=== PATIENT | male | born 1955 | race Caucasian/White ===

== ENCOUNTER 2017-10-05 11:06 | Observation (INO) ==
--- NOTE | 2017-10-05 11:20 | Emergency Department Note ---
Disposition Clinical Impression: Syncope and collapse Disposition: Admitted As Inpatient Condition: Good Time of Disposition: 13:44 General Adult HPI - General Chief complaint: ED Syncope Stated complaint: syncope Time Seen by Provider: 10/05/17 11:12 Source: patient Mode of arrival: ambulatory Limitations: no limitations Nursing Notes Reviewed: Yes Vital Signs Reviewed: Yes - History of Present Illness HPI Narrative: 61-year-old male history of CABG and recent cardiac stent placement 8 weeks ago presents to the emergency department for syncopal episode. States over the past several days he has been feeling lightheaded and dizzy. He believes it could be due to the new medication he has been placed on for his restless leg syndrome. Patient states yesterday around 1530 he had a syncopal episode where he was laying in the recliner got up to go to the bathroom and passed out found on the floor by brother. He has some bruising to his right upper extremity and some soreness to the left hip. He takes aspirin and Plavix due to his stents. He denies any head injury or neck pain. He denies any prodromal symptoms such as lightheadedness, chest pain, shortness of breath or headache. Patient recently evaluated and treated for chest pain with stent placed by [place] client resource specialist. He denies any other complaints at this time. Denies any recent illness or fever. Pain Scale: 6 - Related Data Home Medications Medication Instructions Recorded Confirmed Celecoxib [Celebrex] 200 mg PO DAILY 05/13/15 10/05/17 Cyanocobalamin (B-12) [Vitamin B12] 1,000 mcg SQ Q3M 05/13/15 10/05/17 Fluticasone/Salmeterol [Advair 1 puff IH BID 05/13/15 10/05/17 100-50 Diskus] HydrOXYzine 25 mg PO BID 05/13/15 10/05/17 Isosorbide MONOnitrate (24 HR) 30 mg PO DAILY 05/13/15 10/05/17 [Imdur] Lisinopril [Zestril] 2.5 mg PO DAILY 05/13/15 10/05/17 Metoprolol [Lopressor] 25 mg PO BID 05/13/15 10/05/17 Mirtazapine [Remeron] 30 mg PO HS 05/13/15 10/05/17 Multivitamin [Flintstones] 1 tab PO DAILY 05/13/15 10/05/17 OxyCODONE/APAP 7.5/325 [Percocet 1 tab PO Q6H PRN 05/13/15 10/05/17 7.5/325] Simvastatin [Zocor] 40 mg PO DAILY 05/13/15 10/05/17 Tiotropium [Spiriva] 1 puff IH DAILY 05/13/15 10/05/17 FluocinoNIDE 0.05% CRM [Lidex] 1 appl TP BID 07/25/17 10/05/17 Montelukast [Singulair] 10 mg PO DAILY 07/25/17 10/05/17 Nystatin Cream [Mycostatin Cream] 1 appl TP TID 07/25/17 10/05/17 Prochlorperazine Maleate 5 mg PO Q8H 07/25/17 10/05/17 [Compazine] Ranitidine HCl [Zantac] 150 mg PO BID 07/25/17 10/05/17 Triamcinolone Acet 0.1% CRM 1 appl TP DAILY 07/25/17 10/05/17 [Kenalog] Ferrous Sulfate 325 mg PO DAILY 10/05/17 10/05/17 Previous Rx's Medication Instructions Recorded Aspirin Enteric Coated [Aspirin EC] 81 mg PO DAILY #30 tablet. 07/26/17 Atorvastatin [Lipitor] 80 mg PO QAM #30 tablet 07/26/17 Clopidogrel Bisulfate [Plavix] 75 mg PO DAILY #30 tablet 07/26/17 Lansoprazole [Prevacid] 30 mg PO QAM #30 capsule. 07/26/17 Allergies Allergy/AdvReac Type Severity Reaction Status Date / Time No Known Allergies Allergy Unverified 04/29/15 08:03 All systems ED: reviewed and negative except as stated. Review of Systems: As Per HPI Constitutional: Denies: fever, chills, weakness ENT ED: Denies: congestion Cardiovascular: Reports: syncope. Denies: chest pain, palpitations, dyspnea on exertion Respiratory: Denies: cough, dyspnea Gastrointestinal: Denies: abdominal pain Musculoskeletal: Denies: back pain, neck pain Integumentary: Denies: rash, abrasion Neurological: Denies: headache Past Medical History - Past Medical History Attestation: Yes The following information was validated with the patient. Source: patient Medical history: Reports: arthritis, COPD, coronary artery disease, GERD, hyperlipidemia, hypertension, myocardial infarction Surgical history: Reports: angioplasty/stent, bariatric surgery, cholecystectomy , coronary bypass (CABG) Psychiatric history: Reports: no psych history - Social History Smoking Status: Current every day smoker Smokeless Tobacco Status: No Alcohol use: Reports: none Drug use: Reports: none Physical Exam - General Limitations: no limitations General appearance: alert, in no apparent distress - Head Head exam: atraumatic, normocephalic, normal inspection - Eye Eye exam: Present: normal appearance, PERRL, EOMI. Absent: nystagmus - ENT ENT exam: normal exam, normal oropharynx, mucous membranes moist - Neck Neck exam: Present: normal inspection, full ROM, trachea midline - Chest Chest inspection: Present: normal inspection, symmetric chest wall rise, other ( midsternal scar, CABG) - Respiratory Respiratory exam: Present: normal lung sounds bilaterally. Absent: respiratory distress, wheezes - Cardiovascular Cardiovascular exam: Present: regular rate, normal rhythm, normal heart sounds, other (no murmur with valsalva). Absent: systolic murmur, diastolic murmur - Abdominal Exam Abdominal exam: Present: soft, Non-Tender. Absent: tenderness, distention, guarding, rebound, rigidity - Extremities Exam Extremities exam: Present: normal inspection, full ROM, normal capillary refill. Absent: tenderness, pedal edema - Back Exam Back exam: Present: normal inspection, full ROM. Absent: tenderness - Neurological Exam Neurological exam: Present: alert, oriented X3, CN II-XII intact - Expanded Neurological Exam Patient oriented to: Present: person, place, time Speech: Present: fluid speech Cranial nerves: EOM function (II, III, IV, ): Normal, facial sensation (V): Normal, facial palsy (VII): Normal, gag reflex (IX): Normal, spinal accessory function (XI): Normal, tongue deviation (XII): Normal Motor strength - LUE: 5/5 Motor strength - RUE: 5/5 Motor strength - LLE: 5/5 Motor strength - RLE: 5/5 Upper motor neuron exam: oumar neglect: Absent bilaterally, pronator drift: Absent bilaterally Sensory exam upper extremity: light touch: Normal Sensory exam lower extremity: light touch: Normal - Psychiatric Psychiatric exam: Present: normal affect, normal mood. Absent: agitated - Skin Skin exam: Present: warm, dry, intact, normal color. Absent: rash, cyanosis, diaphoresis Course Course Narrative: Patient presents with syncopal episode without any prodromal symptoms. He does report some increase lightheadedness and dizziness since starting his restless leg medication. Neurologic exam is normal without any focal neural deficits. CT of the head unremarkable for intracranial abnormality. He has extensive cardiac history. History of congestive heart failure. His initial systolic blood pressure 110. He denies any blood in the stool black tarry stool hemoptysis or hematemesis. EKG normal sinus without acute ischemic findings. No Brugada pattern, delta waves, LVH. His heart's regular rate and rhythm. No murmurs are auscultation. He has been noncardiac monitor without any evidence of arrhythmia. Review of his labs shows baseline anemia that is stable. Per ACEP syncope guidelines he warrants admission and further evaluation for syncope. Impression is syncope with collapse and history of CAD. - Consultations Consultation #1: Spoke with on-call hospitalist warren Tian to admit for syncope and collapse. No further orders at this time Vital Signs Temperature 98.3 F 10/05/17 11:08 Pulse Rate 81 10/05/17 11:08 Respiratory Rate 18 10/05/17 11:08 Blood Pressure 119/75 10/05/17 11:08 O2 Sat by Pulse Oximetry 98 10/05/17 11:08 Temperature 98.1 F 10/05/17 18:31 Pulse Rate 60 10/05/17 18:31 Respiratory Rate 16 10/05/17 21:00 Blood Pressure 133/77 10/05/17 18:31 O2 Sat by Pulse Oximetry 95 10/05/17 21:00 Oxygen Delivery Oxygen Delivery Room Air Medical Decision Making - MDM Narrative Medical decision making narrative: Patient was discussed with my attending physician who agrees with ED management and final disposition. They independently evaluated the patient. Please refer to their attestation to this encounter for additional information. This note was generated by [email or web address] voice recognition software and as a result grammatical or spelling errors may occur using this program. - Medical Records Medical records reviewed: Yes I reviewed the patient's medical records. - Lab Data Lab results reviewed: Yes I reviewed the patient's lab results. Result diagrams: 10/05/17 11:45 10/05/17 11:45 Lab Results 10/05/17 10/05/17 10/05/17 Range/Units 11:45 11:45 13:46 WBC 7.6 (4.3-11.1) K/mcL RBC 4.11 L (4.19-5.50) M/mcL Hgb 12.2 L (12.9-16.9) g/dL Hct 35.1 L (37.5-50.1) % MCV 85.4 (83.0-100.0) fL MCH 29.7 (28.0-33.3) pg MCHC 34.8 (31.6-35.5) g/dL RDW 14.9 H (11.5-14.5) % Plt Count 215 (140-400) K/mcL MPV 8.2 L (9.4-12.4) fL Immature Gran % 0.4 (0-4) % Seg Neutrophils % 56.4 % Lymphocytes % 31.6 % Monocytes % 6.3 % Eosinophils % 4.5 % Basophils % 0.8 % Neutrophils # 4.3 (1.6-8.9) K/mcL Lymphocytes # 2.4 (0.6-4.6) K/mcL Monocytes # 0.5 (0.0-1.3) K/mcL Eosinophils # 0.3 (0.0-0.6) K/mcL Basophils # 0.1 (0.0-0.2) K/mcL Sodium 128 L (136-145) mEq/L Potassium 3.8 (3.5-5.1) mEq/L Chloride 98 (98-107) mEq/L Carbon Dioxide 23 (23-29) mEq/L BUN 6 L (8-23) mg/dL Creatinine 0.58 L (0.70-1.30) mg/dL Est GFR ( Amer) > 60 (> 60) Est GFR (Non-Af Amer) > 60 (> 60) BUN/Creatinine Ratio 10 (6-26) Glucose 97 (70-105) mg/dL Calculated Osmolality 264 L (280-300) Calcium 8.7 (8.6-10.3) mg/dL Troponin I < 0.03 < 0.03 (< 0.04) ng/mL - Radiology Data Radiology results reviewed: Yes I reviewed the patient's radiology results. Chest X-Ray 10/05/17 11:36 IMPRESSION: No acute cardiopulmonary process. D/ / Miki Zayas MD / Miki Zayas MD Interpreting Provider: Miki Zayas MD Head CT 10/05/17 11:36 IMPRESSION: No acute intracranial abnormality. D/ / Mauri Wall MD / Mauri Wall MD Interpreting Provider: Mauri Wall MD - EKG Data EKG #1 EKG attestation: Yes I reviewed and interpreted this EKG. EKG results narrative: EKG performed 1118 normal sinus rhythm 74 beats per minute, no ST elevation or depression, no T wave inversion, old Q waves in the inferior lead. No signs of Brugada pattern, delta waves or LVH. Intervals are within normal limits AL interval 173 QRS 97 QT QTC 350 377. Compared to prior EKG performed to shows similar consistent findings of sinus rhythm with Q waves in the inferior leads. No acute ischemic changes.
--- NOTE | 2017-10-05 11:59 | Emergency Department Note ---
Disposition Clinical Impression: Syncope and collapse Disposition: Admitted As Inpatient Condition: Good General Adult HPI - General Chief complaint: ED Syncope Stated complaint: syncope Time Seen by Provider: 10/05/17 11:12 Source: patient Mode of arrival: ambulatory Limitations: no limitations - History of Present Illness Pain Scale: 6 - Related Data Home Medications Medication Instructions Recorded Confirmed Celecoxib [Celebrex] 200 mg PO DAILY 05/13/15 10/05/17 Cyanocobalamin (B-12) [Vitamin B12] 1,000 mcg SQ Q3M 05/13/15 10/05/17 Fluticasone/Salmeterol [Advair 1 puff IH BID 05/13/15 10/05/17 100-50 Diskus] HydrOXYzine 25 mg PO BID 05/13/15 10/05/17 Isosorbide MONOnitrate (24 HR) 30 mg PO DAILY 05/13/15 10/05/17 [Imdur] Lisinopril [Zestril] 2.5 mg PO DAILY 05/13/15 10/05/17 Metoprolol [Lopressor] 25 mg PO BID 05/13/15 10/05/17 Mirtazapine [Remeron] 30 mg PO HS 05/13/15 10/05/17 Multivitamin [Flintstones] 1 tab PO DAILY 05/13/15 10/05/17 OxyCODONE/APAP 7.5/325 [Percocet 1 tab PO Q6H PRN 05/13/15 10/05/17 7.5/325] Simvastatin [Zocor] 40 mg PO DAILY 05/13/15 10/05/17 Tiotropium [Spiriva] 1 puff IH DAILY 05/13/15 10/05/17 FluocinoNIDE 0.05% CRM [Lidex] 1 appl TP BID 07/25/17 10/05/17 Montelukast [Singulair] 10 mg PO DAILY 07/25/17 10/05/17 Nystatin Cream [Mycostatin Cream] 1 appl TP TID 07/25/17 10/05/17 Prochlorperazine Maleate 5 mg PO Q8H 07/25/17 10/05/17 [Compazine] Ranitidine HCl [Zantac] 150 mg PO BID 07/25/17 10/05/17 Triamcinolone Acet 0.1% CRM 1 appl TP DAILY 07/25/17 10/05/17 [Kenalog] Ferrous Sulfate 325 mg PO DAILY 10/05/17 10/05/17 Previous Rx's Medication Instructions Recorded Aspirin Enteric Coated [Aspirin EC] 81 mg PO DAILY #30 tablet. 07/26/17 Atorvastatin [Lipitor] 80 mg PO QAM #30 tablet 07/26/17 Clopidogrel Bisulfate [Plavix] 75 mg PO DAILY #30 tablet 07/26/17 Lansoprazole [Prevacid] 30 mg PO QAM #30 capsule. 07/26/17 Allergies Allergy/AdvReac Type Severity Reaction Status Date / Time No Known Allergies Allergy Unverified 04/29/15 08:03 Past Medical History - Past Medical History Medical history: Reports: arthritis, COPD, coronary artery disease, GERD, hyperlipidemia, hypertension, myocardial infarction Surgical history: Reports: angioplasty/stent, bariatric surgery, cholecystectomy , coronary bypass (CABG) Psychiatric history: Reports: no psych history - Social History Smoking Status: Current every day smoker Smokeless Tobacco Status: No Alcohol use: Reports: none Drug use: Reports: none Physical Exam - General Limitations: no limitations General appearance: alert, in no apparent distress Course Vital Signs Temperature 98.3 F 10/05/17 11:08 Pulse Rate 81 10/05/17 11:08 Respiratory Rate 18 10/05/17 11:08 Blood Pressure 119/75 10/05/17 11:08 O2 Sat by Pulse Oximetry 98 10/05/17 11:08 Temperature 98.1 F 10/05/17 18:31 Pulse Rate 60 10/05/17 18:31 Respiratory Rate 16 10/05/17 18:31 Blood Pressure 133/77 10/05/17 18:31 O2 Sat by Pulse Oximetry 94 10/05/17 18:31 Oxygen Delivery Oxygen Delivery Room Air Medical Decision Making - Lab Data Result diagrams: 10/05/17 11:45 10/05/17 11:45 Lab Results 10/05/17 10/05/17 10/05/17 Range/Units 11:45 11:45 13:46 WBC 7.6 (4.3-11.1) K/mcL RBC 4.11 L (4.19-5.50) M/mcL Hgb 12.2 L (12.9-16.9) g/dL Hct 35.1 L (37.5-50.1) % MCV 85.4 (83.0-100.0) fL MCH 29.7 (28.0-33.3) pg MCHC 34.8 (31.6-35.5) g/dL RDW 14.9 H (11.5-14.5) % Plt Count 215 (140-400) K/mcL MPV 8.2 L (9.4-12.4) fL Immature Gran % 0.4 (0-4) % Seg Neutrophils % 56.4 % Lymphocytes % 31.6 % Monocytes % 6.3 % Eosinophils % 4.5 % Basophils % 0.8 % Neutrophils # 4.3 (1.6-8.9) K/mcL Lymphocytes # 2.4 (0.6-4.6) K/mcL Monocytes # 0.5 (0.0-1.3) K/mcL Eosinophils # 0.3 (0.0-0.6) K/mcL Basophils # 0.1 (0.0-0.2) K/mcL Sodium 128 L (136-145) mEq/L Potassium 3.8 (3.5-5.1) mEq/L Chloride 98 (98-107) mEq/L Carbon Dioxide 23 (23-29) mEq/L BUN 6 L (8-23) mg/dL Creatinine 0.58 L (0.70-1.30) mg/dL Est GFR ( Amer) > 60 (> 60) Est GFR (Non-Af Amer) > 60 (> 60) BUN/Creatinine Ratio 10 (6-26) Glucose 97 (70-105) mg/dL Calculated Osmolality 264 L (280-300) Calcium 8.7 (8.6-10.3) mg/dL Troponin I < 0.03 < 0.03 (< 0.04) ng/mL Attestation Statement - Attestation Attestation: I examined this patient and my medical decision-making was reviewed with the [employer] PH[employer] INSPECTOR/PA/Advanced Practice Nurse/Resident Physician. I agree with the documented findings, disposition and treatment plan as described except to the extent set forth below. I did see the patient is spoke with him and examine home and he did have a syncopal episode yesterday and stood up from a chair and had one or 2 seconds of a white color in front of his eyes and then passed out. We are unsure if he hit his head. He does have anticoagulation so head CT will be done. Examination of the heart does not reveal murmur, patient is bright and alert and nontoxic in appearance. I did review his EKG showing normal sinus rhythm with rate of 74 and without acute ischemic change. There is no evidence of Brugada syndrome, hypertrophic cardiomyopathy, prolonged QT or a delta wave and the patient will have further evaluation here. He has had a CABG in the past. He did have a stent done 2 months ago. He started Requip 3 weeks ago and has had some lightheadedness since that time. [id number]
[2017-10-05 12:04] LABS: Basophils # 0.1 K/mcL (0.0-0.2); Basophils % 0.8 %; Eosinophils # 0.3 K/mcL (0.0-0.6); Eosinophils % 4.5 %; Hematocrit 35.1 % (37.5-50.1); Hemoglobin 12.2 g/dL (12.9-16.9); Immature Granulocytes % 0.4 % (0-4); Lymphocytes # 2.4 K/mcL (0.6-4.6); Lymphocytes % 31.6 %; Mean Corpuscular HGB Conc 34.8 g/dL (31.6-35.5); Mean Corpuscular Hemoglobin 29.7 pg (28.0-33.3); Mean Corpuscular Volume 85.4 fL (83.0-100.0); Mean Platelet Volume 8.2 fL (9.4-12.4); Monocytes # 0.5 K/mcL (0.0-1.3); Monocytes % 6.3 %; Neutrophils # 4.3 K/mcL (1.6-8.9); Platelet Count 215 K/mcL (140-400); Red Blood Count 4.11 M/mcL (4.19-5.50); Red Cell Distribution Width 14.9 % (11.5-14.5); Segmented Neutrophils % 56.4 %
[2017-10-05 12:27] LABS: Troponin I < 0.03 ng/mL (< 0.04)
[2017-10-05 12:47] LABS: BUN/Creatinine Ratio 10 (6-26); Blood Urea Nitrogen 6 mg/dL (8-23); Calcium 8.7 mg/dL (8.6-10.3); Carbon Dioxide 23 mEq/L (23-29); Chloride 98 mEq/L (98-107); Glucose 97 mg/dL (70-105); Osmolality,Calculated 264 (280-300); Potassium 3.8 mEq/L (3.5-5.1); Sodium 128 mEq/L (136-145); eGFR For African Americans > 60 (> 60); eGFR For Non-African Americans > 60 (> 60)
[2017-10-05] MEDS ORDERED: Naloxone 0.4 MG/ML INJ IVP PRN (13:23)
[2017-10-05] MEDS ORDERED: 0.9 % Sodium Chloride 1,000 ML IVC ONE (13:48)
--- NOTE | 2017-10-05 13:57 | Internal Med History&Physical ---
<Dixie Joseph Alok - Last Filed: 10/05/17 13:42> Date of Encounter: 10/05/17 Time of Encounter: 13:43 Internal Medicine - H&P: HPI Admitted From: Home Plans for Post Hospital Care: Home History of present illness: Mr. Quiros is a 61 year old male that presents with a syncopal episode that occurred while he was standing up. He indicated that he was dizzy and his vision was clouded and he passed out. He indicated that he fell on his left side. He indicated that he was just sore. The patient has hx of htn and takes antihypertensives at home. The patient indicates he has never had any trouble with hypotension. He also had a 3-vessel CABG, previous MT and a heart stent placed 8 weeks ago with [facility]. EKG showed SR rate 74, inferior MT, possibly old, probable anterolateral MT, age indeterminate, the rate was 74 bpm. He also has a hx of COPD, and was noted to have exp wheezes in the right posterior lobe. The patient indicated the he was dx with sleep apnea but has not received a cpap or bipap machine yet. The patient takes Spiriva and advair at home. CXR was negative for acute disease and trop was <0.03. Will trend out troponins, provide IV fluids, get orthostatic vital signs, and provide continuous cardiac monitoring. Past Med Surg Social Fam HX - Past Medical History Medical history: arthritis, COPD, coronary artery disease, GERD, hyperlipidemia , hypertension, myocardial infarction, other (sleep apnea) Psychiatric history: no psych history - Past Surgical History Surgical History: angioplasty/stent, bariatric surgery, cholecystectomy, coronary bypass (CABG) - Social History Smoking Status: Current every day smoker Smokeless Tobacco Status: No Alcohol use: none Drug use: none - Family History Mother Family Member Ethnicity: Non- Living Status: Father Family Member Ethnicity: Non- Living Status: Hx Family Cancer: Yes (leukemia) Internal Medicine - H&P: Meds Celecoxib [Celebrex] 200 mg PO DAILY 05/13/15 [History] Cyanocobalamin (B-12) [Vitamin B12] 1,000 mcg SQ Q3M 05/13/15 [History] Fluticasone/Salmeterol [Advair 100-50 Diskus] 1 puff IH BID 05/13/15 [History] HydrOXYzine 25 mg PO BID 05/13/15 [History] Isosorbide MONOnitrate (24 HR) [Imdur] 30 mg PO DAILY 05/13/15 [History] Lisinopril [Zestril] 2.5 mg PO DAILY 05/13/15 [History] Metoprolol [Lopressor] 25 mg PO BID 05/13/15 [History] Mirtazapine [Remeron] 30 mg PO HS 05/13/15 [History] Multivitamin [Flintstones] 1 tab PO DAILY 05/13/15 [History] OxyCODONE/APAP 7.5/325 [Percocet 7.5/325] 1 tab PO Q6H PRN 05/13/15 [History] Simvastatin [Zocor] 40 mg PO DAILY 05/13/15 [History] Tiotropium [Spiriva] 1 puff IH DAILY 05/13/15 [History] FluocinoNIDE 0.05% CRM [Lidex] 1 appl TP BID 07/25/17 [History] Montelukast [Singulair] 10 mg PO DAILY 07/25/17 [History] Nystatin Cream [Mycostatin Cream] 1 appl TP TID 07/25/17 [History] Prochlorperazine Maleate [Compazine] 5 mg PO Q8H 07/25/17 [History] Ranitidine HCl [Zantac] 150 mg PO BID 07/25/17 [History] Triamcinolone Acet 0.1% CRM [Kenalog] 1 appl TP DAILY 07/25/17 [History] Aspirin Enteric Coated [Aspirin EC] 81 mg PO DAILY #30 tablet. 07/26/17 [Rx] Atorvastatin [Lipitor] 80 mg PO QAM #30 tablet 07/26/17 [Rx] Clopidogrel Bisulfate [Plavix] 75 mg PO DAILY #30 tablet 07/26/17 [Rx] Lansoprazole [Prevacid] 30 mg PO QAM #30 capsule. 07/26/17 [Rx] Ferrous Sulfate 325 mg PO DAILY 10/05/17 [History] 3 Allergy/AdvReac Type Severity Reaction Status Date / Time No Known Allergies Allergy Unverified 04/29/15 08:03 All Systems PM: A 10-system review of systems was performed and is negative for pertinent findings except as documented above in the HPI. - Constitutional Constitutional: no chills, no fever(s), no night sweats - EENT Eyes: change in vision, no discharge, no pain, no photophobia Ears: no ear discharge, no ear pain, no tinnitus Nose, mouth and throat: no dysphagia, no nasal discharge, no neck pain, no sore throat - Breasts Additional comments: N/A - Cardiovascular Cardiovascular ROS IM: no chest pain, no diaphoresis, no dyspnea, no lightheadedness, no palpitations, no syncope - Respiratory Respiratory: wheezing, no cough, no dyspnea, no excessive phlegm production - Gastrointestinal Gastrointestinal: no abdominal pain, no diarrhea, no hematemesis, no hematochezia, no melena, no nausea, no vomiting - Musculoskeletal Musculoskeletal ROS IM: no numbness, no tingling - Integumentary Integumentary IM: no rash, no unusual bruising - Neurological Neurological ROS: no confusion, no convulsions, no focal weakness, no numbness, no tingling, no tremor(s) - Hematologic/Lymphatic Hematologic/Lymphatic: no easy bruising - Constitutional Vitals: Temp Pulse Resp BP Pulse Ox 98.3 F 74 18 110/77 98 10/05/17 11:17 10/05/17 11:42 10/05/17 11:42 10/05/17 11:42 10/05/17 11:42 General appearance: Present: A&O X 3, no acute distress - Head Head exam: Present: atraumatic, normocephalic - Eye Eye exam: Present: PERRL, conjuntiva pink, sclera anicteric Pupils: Present: PERRL - Neck Neck exam general surgery: Present: supple, trachea midline. Absent: lymphadenopathy - Respiratory Respiratory exam: Present: wheezes (right posterior lobe). Absent: accessory muscle use, rales, rhonchi - Cardiovascular Cardiovascular exam: Present: RRR, +S1, +S2. Absent: diastolic murmur, gallop, rubs, systolic murmur - GI/Abdominal GI/Abdominal exam: Present: normal bowel sounds, soft, no peritoneal signs. Absent: distended, tenderness - Extremities Exam Extremities exam: Present: warm, radial pulses palpable and symmetrical. Absent : calf tenderness, cyanotic, pedal edema - Neurological Exam Neurological exam: Present: CN II-XII intact, oriented X3, no focal deficits. Absent: pronater drift, facial droop, speech deficit - Skin Skin exam: Present: dry, intact Internal Med - H&P Results - Labs CBC & Chem 7: 10/05/17 11:45 10/05/17 11:45 Labs: Short CBC 10/05/17 Range/Units 11:45 WBC 7.6 (4.3-11.1) K/mcL Hgb 12.2 L (12.9-16.9) g/dL Hct 35.1 L (37.5-50.1) % Plt Count 215 (140-400) K/mcL Neutrophils # 4.3 (1.6-8.9) K/mcL BMP 10/05/17 11:45 Sodium 128 L Potassium 3.8 Chloride 98 Carbon Dioxide 23 BUN 6 L Creatinine 0.58 L Glucose 97 Calcium 8.7 Cardiac Enzymes 10/05/17 Range/Units 11:45 Troponin I < 0.03 (< 0.04) ng/mL - Impressions ITS Impressions Chest X-Ray 10/05/17 11:36 IMPRESSION: No acute cardiopulmonary process. D/ / Miki Zayas MD / Miki Zayas MD Interpreting Provider: Miki Zayas MD Head CT 10/05/17 11:36 IMPRESSION: No acute intracranial abnormality. D/ / Mauir Wall MD / Mauri Wall MD Interpreting Provider: Mauri Wall MD - Assessment and plan (1) Syncope and collapse Current Visit: Yes Status: Acute Assessment and plan: Patient had syncopal episode where he collapsed onto the floor. Will get orthostatics bid and provide IVF's. Plan to provide continuous cardiac monitoring. No hypotension at this time, however the patient is on antihypertensives. He also has a hx of CAD and has had CABG x3 vessels and a recent stent placement. So will also trend serial cardiac troponins x 3. (2) CAD (coronary artery disease) Current Visit: Yes Status: Chronic Assessment and plan: The patient had a MT and CAbG x3 vessels,and recent stent placement. He will having supplementeal oxygen if needed and cardiac monitoring. He indicated that he was originally supposed to wear oxygen at home but refused in the past. He is not currently hypoxic. Qualifiers: Coronary Disease-Associated Artery/Lesion type: bypass graft [place] vs. transplanted heart: [place] heart Associated angina: angina presence unspecified Qualified Code(s): I25.810 - Atherosclerosis of coronary artery bypass graft(s) without angina pectoris (3) HTN (hypertension) Current Visit: Yes Status: Chronic Assessment and plan: The patient bp is currently controlled. He will continue home antihypertensives. Qualifiers: Hypertension type: essential hypertension Qualified Code(s): I10 - Essential (primary) hypertension (4) HLD (hyperlipidemia) Current Visit: No Status: Chronic Assessment and plan: The home statin medications will be continued inpatient. Qualifiers: Hyperlipidemia type: unspecified Qualified Code(s): E78.5 - Hyperlipidemia , unspecified - Time Spent With Patient Total time spent is greater than 50% in coordination of care (as documented) at patient's floor/unit and/or counseling patient: 25 - 35 minutes <Ehsan Moser P - Last Filed: 10/06/17 08:00> Date of Encounter: 10/06/17 Internal Medicine - H&P: HPI History of present illness: Mr. Quiros is a 61 year old male All Systems PM: A 10-system review of systems was performed and is negative for pertinent findings except as documented above in the HPI. - Constitutional Vitals: Temp Pulse Resp BP Pulse Ox 98.3 F 54 14 116/73 94 10/06/17 06:50 10/06/17 06:50 10/06/17 06:50 10/06/17 06:50 10/06/17 06:50 Internal Med - H&P Results - Labs CBC & Chem 7: 10/06/17 03:34 10/06/17 03:34 Labs: Short CBC 10/06/17 Range/Units 03:34 WBC 6.5 (4.3-11.1) K/mcL Hgb 11.5 L (12.9-16.9) g/dL Hct 33.9 L (37.5-50.1) % Plt Count 209 (140-400) K/mcL Neutrophils # 2.7 (1.6-8.9) K/mcL BMP 10/06/17 03:34 Sodium 134 L Potassium 3.9 Chloride 104 Carbon Dioxide 24 BUN 9 Creatinine 0.54 L Glucose 59 L Calcium 8.6 Cardiac Enzymes 10/05/17 10/06/17 Range/Units 21:40 03:34 Troponin I < 0.03 < 0.03 (< 0.04) ng/mL - Attending Attestation I examined this patient and my medical decision-making was reviewed with the Resident Physician. I agree with the documented findings, disposition and treatment plan as described except to the extent set forth below. Agree with the findings and examination of nurse practitioner Miss Colin. - Time Spent With Patient Total time spent is greater than 50% in coordination of care (as documented) at patient's floor/unit and/or counseling patient:
[2017-10-05] MEDS: *HR* OxyCODONE/APAP 7.5/325 TABLET PO PRN ×2 (15:05→20:34)
[2017-10-05] MEDS: 0.9 % Sodium Chloride 1,000 ML IVC SCH (15:06)
[2017-10-05] MEDS: Famotidine 20 MG TABLET PO SCH (20:35)
[2017-10-05] MEDS: hydrOXYzine pamoate 25 MG CAPSULE PO SCH (20:35)
[2017-10-05] MEDS: Budesonide/Formoterol 80/4.5 MDI IH SCH (20:59)
[2017-10-05] MEDS ORDERED: Mirtazapine 15 MG TABLET PO SCH (21:00)
[2017-10-06] MEDS: 0.9 % Sodium Chloride 1,000 ML IVC SCH (02:58)
[2017-10-06 04:16] LABS: Basophils # 0.1 K/mcL (0.0-0.2); Basophils % 1.1 %; Eosinophils # 0.4 K/mcL (0.0-0.6); Eosinophils % 6.8 %; Hematocrit 33.9 % (37.5-50.1); Hemoglobin 11.5 g/dL (12.9-16.9); Immature Granulocytes % 0.3 % (0-4); Lymphocytes # 2.8 K/mcL (0.6-4.6); Mean Corpuscular HGB Conc 33.9 g/dL (31.6-35.5); Mean Corpuscular Hemoglobin 29.3 pg (28.0-33.3); Mean Corpuscular Volume 86.3 fL (83.0-100.0); Mean Platelet Volume 8.8 fL (9.4-12.4); Monocytes # 0.5 K/mcL (0.0-1.3); Monocytes % 7.2 %; Neutrophils # 2.7 K/mcL (1.6-8.9); Platelet Count 209 K/mcL (140-400); Red Blood Count 3.93 M/mcL (4.19-5.50); Segmented Neutrophils % 41.6 %
[2017-10-06 04:23] LABS: BUN/Creatinine Ratio 17 (6-26); Blood Urea Nitrogen 9 mg/dL (8-23); Calcium 8.6 mg/dL (8.6-10.3); Carbon Dioxide 24 mEq/L (23-29); Chloride 104 mEq/L (98-107); Glucose 59 mg/dL (70-105); Osmolality,Calculated 274 (280-300); Potassium 3.9 mEq/L (3.5-5.1); Sodium 134 mEq/L (136-145); eGFR For African Americans > 60 (> 60); eGFR For Non-African Americans > 60 (> 60)
[2017-10-06] MEDS: *HR* Heparin 5,000 UNIT/ML VIAL SQ SCH ×2 (05:58→13:51)
--- NOTE | 2017-10-06 06:20 | Electrocardiograph Report ---
[facility] [employer] Test Date: 2017-10-05 Pat Name: Eleazar Quiros Department: 102 Room: 3B14 Gender: M Garment Sorter: : 1955 Requested By: Jose Rocha Order Number: [id number] Reading MD: Chicho Peterson Measurements Intervals [place] Rate: 74 P: 49 [place]: 173 QRS: 52 QRSD: 97 T: 69 QT: 350 QTc: 377 Interpretive Statements SINUS RHYTHM INFERIOR MYOCARDIAL INFARCTION Electronically Signed On 10-06-2017 6:18:54 EDT by Chicho Peterson
[2017-10-06] MEDS: Budesonide/Formoterol 80/4.5 MDI IH SCH (07:39)
[2017-10-06] MEDS: hydrOXYzine pamoate 25 MG CAPSULE PO SCH (08:11)
[2017-10-06] MEDS: Famotidine 20 MG TABLET PO SCH (08:11)
[2017-10-06] MEDS: *HR* OxyCODONE/APAP 7.5/325 TABLET PO PRN (08:16)
[2017-10-06] MEDS ORDERED: Celecoxib 200 MG CAPSULE PO SCH (09:00)
[2017-10-06] MEDS ORDERED: Isosorbide MONOnitrate (24 HR) 30 MG TAB.ER.24H PO SCH (09:00)
[2017-10-06] MEDS ORDERED: Aspirin Enteric Coated 81 MG Tablet PO SCH (09:00)
[2017-10-06] MEDS ORDERED: Multivit/Ca/Min/Fe/FA 1 TAB TABLET PO SCH (09:00)
[2017-10-06] MEDS ORDERED: Tiotropium 18 MCG inhalation IH SCH (09:00)
[2017-10-06 15:48] VITALS: BP 122/70
--- NOTE | 2017-10-06 16:18 | Discharge Summary ---
Date of Encounter: 10/06/17 Time of Encounter: 16:16 Hospital course: Mr. Quiros is a 61 year old male - Time Spent with Patient Total time spent providing and/or coordinating discharge services: - Discharge Medications Home Medications: Celecoxib [Celebrex] 200 mg PO DAILY 05/13/15 [History] Cyanocobalamin (B-12) [Vitamin B12] 1,000 mcg SQ Q3M 05/13/15 [History] Fluticasone/Salmeterol [Advair 100-50 Diskus] 1 puff IH BID 05/13/15 [History] HydrOXYzine 25 mg PO BID 05/13/15 [History] Isosorbide MONOnitrate (24 HR) [Imdur] 30 mg PO DAILY 05/13/15 [History] Lisinopril [Zestril] 2.5 mg PO DAILY 05/13/15 [History] Metoprolol [Lopressor] 25 mg PO BID 05/13/15 [History] Mirtazapine [Remeron] 30 mg PO HS 05/13/15 [History] Multivitamin [Flintstones] 1 tab PO DAILY 05/13/15 [History] OxyCODONE/APAP 7.5/325 [Percocet 7.5/325] 1 tab PO Q6H PRN 05/13/15 [History] Simvastatin [Zocor] 40 mg PO DAILY 05/13/15 [History] Tiotropium [Spiriva] 1 puff IH DAILY 05/13/15 [History] FluocinoNIDE 0.05% CRM [Lidex] 1 appl TP BID 07/25/17 [History] Montelukast [Singulair] 10 mg PO DAILY 07/25/17 [History] Nystatin Cream [Mycostatin Cream] 1 appl TP TID 07/25/17 [History] Prochlorperazine Maleate [Compazine] 5 mg PO Q8H 07/25/17 [History] Ranitidine HCl [Zantac] 150 mg PO BID 07/25/17 [History] Triamcinolone Acet 0.1% CRM [Kenalog] 1 appl TP DAILY 07/25/17 [History] Aspirin Enteric Coated [Aspirin EC] 81 mg PO DAILY #30 tablet. 07/26/17 [Rx] Atorvastatin [Lipitor] 80 mg PO QAM #30 tablet 07/26/17 [Rx] Clopidogrel Bisulfate [Plavix] 75 mg PO DAILY #30 tablet 07/26/17 [Rx] Lansoprazole [Prevacid] 30 mg PO QAM #30 capsule. 07/26/17 [Rx] Ferrous Sulfate 325 mg PO DAILY 10/05/17 [History] Allergies/Adverse Reactions: 3 Allergy/AdvReac Type Severity Reaction Status Date / Time No Known Allergies Allergy Unverified 04/29/15 08:03 Date of admission: 10/05/17 14:03 Primary care physician: Jay Davis MD - Constitutional Vitals: Temp Pulse Resp BP Pulse Ox 97.8 F 63 14 122/70 100 10/06/17 15:47 10/06/17 15:47 10/06/17 15:47 10/06/17 15:47 10/06/17 15:47 General appearance: Present: A&O X 3, no acute distress - Patient Status Condition: Good - Discharge Instructions Follow Up With: Jay Davis MD [Primary Care Provider] -
--- NOTE | 2017-10-06 16:46 | Event Note ---
Date of Encounter: 10/06/17 Time of Encounter: 16:31 Mr. Quiros is a 61-year-old male who presented with a history of a syncopal collapse episode which occurred while going from a seating to establish a physician. The patient indicated that as he stood up he began to feel very dizzy and vision became clotted and he passed out. He denies any head trauma. Patient is a history of HTN and is on medications for this at home. He reported to me prior history of syncopal/near syncopal events in the past. The patient was just here patient has multiple cardiac risk factors including history of three-vessel CABG, prior MIs and a recent LHC approximately 8 weeks ago requiring stent placement. Patient's EKG on arrival sinus rhythm with a rate of 74, carotid Doppler imaging found no stenosis, echocardiogram was unremarkable with the exception of finding a small focal area of apical inferior akinesis which may represent the previous [place]. Troponins were negative. The patient never had any arrhythmic events throughout the stay. Patient was noted to have positive orthostasis, with a greater than 10 mmHg drop in blood pressure with change of position, the patient was also noted to have bradycardia with rates in the 40s and 50s. The patient is aware of this information and has been informed that he would need his blood pressure medications adjusted as either likely cause of her orthostasis. However, the patient was adamant about leaving. He was instructed that he was not medically safe for discharge and that I would be unable to discharge him in this condition. The patient has been informed that if he were to would be AGAINST MEDICAL ADVICE. He has been informed that his condition that he has at high risk for . Other risks include falls, and worsening morbidity and mortality with worsening of disease without treatment. Patient continues state that he needs to get home as his has dementia and home alone eating regularly take care of her. 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 He has been instructed to attempt to make an appointment as early as tomorrow. Again it should be noted that the patient is leaving AGAINST MEDICAL ADVICE
== END 2017-10-06 17:16 | disposition left against medical advice (07) ==
LOC: 3BNU 11:06 → EMEROO 11:06 → 3BNU 14:31
PROVIDERS: ADMIT Internal Medicine; ATTEND Internal Medicine

== ENCOUNTER 2019-09-10 06:16 | Inpatient (IN) ==
[2019-09-10] MEDS ORDERED: CeFAZolin Syr 2,000MG/20 ML 2,000 MG/20 ML SYRINGE IVPB ONE (06:41)
[2019-09-10] MEDS ORDERED: Ringers Solution, Lactated 1,000 ML IVC SCH (06:45)
[2019-09-10] MEDS ORDERED: *HR* Succinylcholine 200 MG/10 ML VIAL IVP ONE (07:03)
[2019-09-10] MEDS ORDERED: Lidocaine -MPF 2% 2 ML VIAL ONE (07:03)
[2019-09-10] MEDS ORDERED: *HR* FentaNYL (PF) 100 MCG/2 ML VIAL ONE (07:03)
[2019-09-10] MEDS ORDERED: Ondansetron 4 MG/2 ML VIAL ONE (07:03)
[2019-09-10] MEDS ORDERED: *HR* Remifentanil 2 MG VIAL IVP ONE (07:03)
[2019-09-10] MEDS ORDERED: Dexamethasone 4 MG/ML VIAL ONE (07:03)
[2019-09-10] MEDS ORDERED: *HR* Rocuronium Bromide 50 MG/5 ML VIAL ONE (07:03)
[2019-09-10] MEDS ORDERED: *HR* Midazolam HCl 2 MG/2 ML VIAL ONE (07:03)
[2019-09-10] MEDS ORDERED: Heparin 1,000 UNITS/500 mL 500 ML ONE (07:04)
[2019-09-10] MEDS ORDERED: *HR* Propofol 200 MG/20 ML VIAL IVP ONE (07:04)
[2019-09-10] MEDS ORDERED: Heparin 1,000 UNITS/500 mL 1,500 ML ONE (07:10)
[2019-09-10] MEDS ORDERED: Vancomycin 1,000 MG VIAL ONE (07:12)
[2019-09-10] MEDS ORDERED: *HR* Phenylephrine 10 MG/ML VIAL ONE (07:13)
[2019-09-10] MEDS ORDERED: *HR* Promethazine 25 MG/ML VIAL IVP PRN (07:23)
[2019-09-10] MEDS ORDERED: Ondansetron 4 MG/2 ML VIAL IVP ONE (07:23)
[2019-09-10] MEDS ORDERED: *HR* OxyCODONE Immed Rel 5 MG TABLET PO PRN ×2 (07:23→13:06)
[2019-09-10] MEDS ORDERED: *HR* HYDROmorphone PF 0.5 MG/0.5 ML SYRINGE IVP PRN (07:23)
[2019-09-10] MEDS ORDERED: EPHEDrine 50 MG/ML VIAL ONE (08:15)
[2019-09-10] MEDS ORDERED: *HR* Heparin 5,000 UNIT/ML VIAL ONE ×2 (09:16→09:30)
[2019-09-10] MEDS ORDERED: *HR* HYDROMORPHONE 2 MG/ML VIAL ONE (11:31)
[2019-09-10] MEDS ORDERED: *HR* Metoprolol 5 MG/5 ML VIAL IVP ONE (11:57)
[2019-09-10] MEDS ORDERED: Acetaminophen 325 MG TABLET PO PRN ×2 (13:06)
[2019-09-10] MEDS ORDERED: *HR* HYDROcodone/Acet 5/325 mg TABLET PO PRN ×2 (13:06)
[2019-09-10] MEDS ORDERED: Ondansetron ODT 4 MG TAB.RAPDIS PO PRN (13:06)
[2019-09-10] MEDS ORDERED: Nitroglycerin 0.4 MG TAB.SUBL SL PRN (13:06)
[2019-09-10] MEDS ORDERED: 0.9 % Sodium Chloride 1,000 ML IVC SCH (13:06)
[2019-09-10] MEDS ORDERED: *HR* Labetalol 20 MG/4 ML SYRINGE IVP PRN (13:06)
[2019-09-10] MEDS ORDERED: Ondansetron 4 MG/2 ML VIAL IVP PRN (13:06)
[2019-09-10] MEDS ORDERED: Naloxone 0.4 MG/ML INJ IVP PRN (13:06)
[2019-09-10] MEDS ORDERED: NON-FORMULARY MEDICATION 1 EACH EACH (Cyanocobalamin (B-12) 1,000 MCG) SQ SCH (13:06)
[2019-09-10] MEDS: *HR* OxyCODONE Immed Rel 5 MG TABLET PO PRN ×2 (13:40→20:50)
[2019-09-10] MEDS ORDERED: ceFAZolin 2,000 MG in 0.9 % Sodium Chloride 100 ML IVPB SCH (14:00)
[2019-09-10] MEDS: *HR* Metoprolol 5 MG/5 ML VIAL IVP SCH ×2 (17:11→23:53)
[2019-09-10] MEDS: Budesonide/Formoterol 160/4.5 1 PUFF INH IH SCH (20:07)
[2019-09-10] MEDS: hydrOXYzine pamoate 25 MG CAPSULE PO SCH (20:50)
[2019-09-11] MEDS ORDERED: ceFAZolin 2,000 MG in 0.9 % Sodium Chloride 100 ML IVPB SCH
[2019-09-11 02:02] LABS: Basophils % 0.2 %; Hematocrit 30.2 % (37.5-50.1); Immature Granulocytes % 0.6 % (0-4); Lymphocytes # 1.5 K/mcL (0.6-4.6); Lymphocytes % 13.2 %; Mean Corpuscular HGB Conc 32.5 g/dL (31.6-35.5); Mean Corpuscular Hemoglobin 27.7 pg (28.0-33.3); Mean Corpuscular Volume 85.3 fL (83.0-100.0); Mean Platelet Volume 8.8 fL (9.4-12.4); Monocytes # 0.6 K/mcL (0.0-1.3); Neutrophils # 9.2 K/mcL (1.6-8.9); Platelet Count 179 K/mcL (140-400); Red Blood Count 3.54 M/mcL (4.19-5.50); Red Cell Distribution Width 14.7 % (11.5-14.5); White Blood Count 11.3 K/mcL (4.3-11.1)
[2019-09-11 02:03] LABS: Hemoglobin 9.8 g/dL (12.9-16.9)
[2019-09-11 02:24] LABS: BUN/Creatinine Ratio 9 (6-26); Blood Urea Nitrogen 5 mg/dL (8-23); Calcium 8.3 mg/dL (8.6-10.3); Carbon Dioxide 24 mEq/L (23-29); Chloride 103 mEq/L (98-107); Glucose 127 mg/dL (70-105); Osmolality,Calculated 275 (280-300); Potassium 3.9 mEq/L (3.5-5.1); Sodium 133 mEq/L (136-145); eGFR For African Americans > 60 (> 60); eGFR For Non-African Americans > 60 (> 60)
[2019-09-11] MEDS: *HR* Metoprolol 5 MG/5 ML VIAL IVP SCH (05:51)
[2019-09-11] MEDS ORDERED: *HR* Heparin 5,000 UNIT/ML VIAL SQ SCH ×2 (06:00)
[2019-09-11 07:14] VITALS: BP 128/73
[2019-09-11] MEDS: hydrOXYzine pamoate 25 MG CAPSULE PO SCH (07:29)
[2019-09-11] MEDS: Budesonide/Formoterol 160/4.5 1 PUFF INH IH SCH (07:48)
[2019-09-11] MEDS ORDERED: hydrALAZINE 25 MG TABLET PO PRN (08:51)
[2019-09-11] MEDS ORDERED: Aspirin Enteric Coated 81 MG Tablet PO SCH (09:00)
[2019-09-11] MEDS ORDERED: Celecoxib 200 MG CAPSULE PO SCH (09:00)
[2019-09-11] MEDS ORDERED: Isosorbide MONOnitrate (24 HR) 30 MG TAB.ER.24H PO SCH (09:00)
[2019-09-11] MEDS ORDERED: Multivit/Ca/Min/Fe/FA 1 TAB TABLET PO SCH (09:00)
[2019-09-11] MEDS ORDERED: rOPINIRole 1 MG TABLET PO SCH (09:00)
[2019-09-11] MEDS ORDERED: clonazePAM 1 MG TABLET PO SCH (09:00)
[2019-09-11] MEDS ORDERED: lisinopriL 5 MG TABLET PO SCH (09:00)
[2019-09-17] MEDS ORDERED: Ergocalciferol (VIT D2) 50,000 UNIT (1.25MG) CAP PO SCH (09:00)
== END 2019-09-11 14:15 | disposition home or self-care (01) | DRG 271 ==
LOC: SAMDAY 06:16 → 3NENU 13:19
PROVIDERS: ADMIT Surgery; ATTEND Surgery

== ENCOUNTER 2019-12-25 16:46 | Inpatient (IN) ==
[2019-12-25] MEDS ORDERED: *HR* Metoprolol 5 MG/5 ML VIAL IVP PRN (19:08)
[2019-12-25] MEDS ORDERED: *HR* OxyCODONE/APAP 5/325 TABLET PO PRN (19:08)
[2019-12-25] MEDS ORDERED: 0.9 % Sodium Chloride 1,000 ML IVC SCH (19:15)
[2019-12-25 19:46] LABS: INR 1.1; Prothrombin Time 12.7 Seconds (9.4-12.1)
[2019-12-25 19:49] LABS: Activated Partial Thrombo Time 21.6 Seconds (26.0-36.0)
[2019-12-25 19:51] LABS: Basophils # 0.1 K/mcL (0.0-0.2); Basophils % 0.6 %; Eosinophils # 0.5 K/mcL (0.0-0.6); Eosinophils % 4.4 %; Hematocrit 31.7 % (37.5-50.1); Hemoglobin 10.4 g/dL (12.9-16.9); Immature Granulocytes % 0.2 % (0-4); Lymphocytes # 2.6 K/mcL (0.6-4.6); Lymphocytes % 25.8 %; Mean Corpuscular HGB Conc 32.8 g/dL (31.6-35.5); Mean Corpuscular Hemoglobin 26.7 pg (28.0-33.3); Mean Corpuscular Volume 81.3 fL (83.0-100.0); Mean Platelet Volume 8.8 fL (9.4-12.4); Monocytes # 0.6 K/mcL (0.0-1.3); Monocytes % 5.5 %; Neutrophils # 6.4 K/mcL (1.6-8.9); Platelet Count 245 K/mcL (140-400); Red Cell Distribution Width 15.2 % (11.5-14.5); Segmented Neutrophils % 63.5 %; White Blood Count 10.2 K/mcL (4.3-11.1)
[2019-12-25 20:00] LABS: BUN/Creatinine Ratio 25 (6-26); Blood Urea Nitrogen 13 mg/dL (8-23); Calcium 9.2 mg/dL (8.6-10.3); Carbon Dioxide 26 mEq/L (23-29); Chloride 89 mEq/L (98-107); Glucose 90 mg/dL (70-105); Osmolality,Calculated 260 (280-300); Potassium 3.6 mEq/L (3.5-5.1); Sodium 125 mEq/L (136-145); eGFR For African Americans > 60 (> 60); eGFR For Non-African Americans > 60 (> 60)
[2019-12-25] MEDS: Vancomycin 1,250 MG/262.5 ML IV.SOLN IVPB SCH (21:49)
[2019-12-25] MEDS: Ipratropium/Albuterol Neb 3 ML IH SCH (22:36)
[2019-12-26 01:51] LABS: Hematocrit 29.2 % (37.5-50.1); Hemoglobin 9.6 g/dL (12.9-16.9); Mean Corpuscular HGB Conc 32.9 g/dL (31.6-35.5); Mean Corpuscular Hemoglobin 26.4 pg (28.0-33.3); Mean Corpuscular Volume 80.2 fL (83.0-100.0); Mean Platelet Volume 8.5 fL (9.4-12.4); Platelet Count 217 K/mcL (140-400); Red Blood Count 3.64 M/mcL (4.19-5.50)
[2019-12-26 01:56] LABS: INR 1.2; Prothrombin Time 13.6 Seconds (9.4-12.1)
[2019-12-26 01:58] LABS: Activated Partial Thrombo Time 28.7 Seconds (26.0-36.0)
[2019-12-26 02:11] LABS: BUN/Creatinine Ratio 21 (6-26); Blood Urea Nitrogen 9 mg/dL (8-23); Calcium 8.6 mg/dL (8.6-10.3); Carbon Dioxide 24 mEq/L (23-29); Chloride 95 mEq/L (98-107); Glucose 88 mg/dL (70-105); Osmolality,Calculated 268 (280-300); Potassium 3.4 mEq/L (3.5-5.1); Sodium 130 mEq/L (136-145); eGFR For African Americans > 60 (> 60); eGFR For Non-African Americans > 60 (> 60)
[2019-12-26] MEDS: Ipratropium/Albuterol Neb 3 ML IH SCH ×5 (03:30→21:34)
[2019-12-26] MEDS ORDERED: *HR* FentaNYL (PF) 100 MCG/2 ML VIAL ONE (07:06)
[2019-12-26] MEDS ORDERED: *HR* Propofol 200 MG/20 ML VIAL IVP ONE (07:07)
[2019-12-26] MEDS ORDERED: *HR* Midazolam HCl 2 MG/2 ML VIAL ONE (07:07)
[2019-12-26] MEDS ORDERED: CefOXitin 1,000 MG VIAL ONE (07:43)
[2019-12-26] MEDS ORDERED: CefOXitin 2,000 MG VIAL ONE (07:43)
[2019-12-26] MEDS ORDERED: Vancomycin 1,000 MG VIAL ONE (07:43)
[2019-12-26] MEDS ORDERED: Acetaminophen IV 1,000 MG/100 ML INFUS..BTL ONE (07:57)
[2019-12-26] MEDS ORDERED: Famotidine 20 MG/2 ML VIAL ONE (07:58)
[2019-12-26] MEDS ORDERED: *HR* PHENYLEPHRINE 1,000 MCG/10 ML SYRINGE IVP ONE (08:16)
[2019-12-26] MEDS ORDERED: Lidocaine -MPF 2% 2 ML VIAL ONE (08:32)
[2019-12-26] MEDS ORDERED: Ondansetron 4 MG/2 ML VIAL ONE (08:32)
[2019-12-26] MEDS ORDERED: *HR* OxyCODONE Immed Rel 5 MG TABLET PO PRN (08:52)
[2019-12-26] MEDS ORDERED: *HR* Promethazine 25 MG/ML VIAL IVP PRN (08:52)
[2019-12-26] MEDS ORDERED: *HR* HYDROmorphone 2 MG TABLET PO PRN (08:52)
[2019-12-26] MEDS ORDERED: *HR* Labetalol 20 MG/4 ML SYRINGE IVP PRN (08:52)
[2019-12-26] MEDS: *HR* HYDROmorphone (PF) 1 MG/ML SYRINGE IVP PRN ×2 (09:02→09:20)
[2019-12-26] MEDS ORDERED: *HR* OxyCODONE/APAP 5/325 TABLET PO PRN (09:47)
[2019-12-26] MEDS ORDERED: 0.9 % Sodium Chloride 1,000 ML IVC SCH (09:47)
[2019-12-26] MEDS ORDERED: NON-FORMULARY MEDICATION 1 EACH EACH (Omeprazole [Prilosec] 40 MG) PO PRN (09:47)
[2019-12-26] MEDS ORDERED: *HR* Metoprolol 5 MG/5 ML VIAL IVP PRN (09:47)
[2019-12-26] MEDS: Celecoxib 200 MG CAPSULE PO SCH (10:10)
[2019-12-26] MEDS: Isosorbide MONOnitrate (24 HR) 30 MG TAB.ER.24H PO SCH (10:10)
[2019-12-26] MEDS: Aspirin Enteric Coated 81 MG Tablet PO SCH (10:10)
[2019-12-26] MEDS: lisinopriL 5 MG TABLET PO SCH (10:11)
[2019-12-26] MEDS: Vancomycin 1,250 MG/262.5 ML IV.SOLN IVPB SCH ×2 (10:49→23:53)
[2019-12-26] MEDS ORDERED: Potassium Chloride Elixir 20 MEQ/15 ML UDC PO ONE (12:46)
[2019-12-26] MEDS ORDERED: Ketorolac 30 MG/ML VIAL IVP ONE (14:55)
[2019-12-26] MEDS ORDERED: rOPINIRole 1 MG TABLET PO SCH (21:00)
[2019-12-26] MEDS ORDERED: clonazePAM 1 MG TABLET PO SCH (21:00)
[2019-12-27] MEDS: Vancomycin 1,250 MG/262.5 ML IV.SOLN IVPB SCH (00:03)
[2019-12-27 01:44] LABS: BUN/Creatinine Ratio 27 (6-26); Blood Urea Nitrogen 12 mg/dL (8-23); Carbon Dioxide 24 mEq/L (23-29); Chloride 98 mEq/L (98-107); Glucose 81 mg/dL (70-105); Osmolality,Calculated 265 (280-300); Potassium 4.2 mEq/L (3.5-5.1); Sodium 128 mEq/L (136-145); eGFR For African Americans > 60 (> 60); eGFR For Non-African Americans > 60 (> 60)
[2019-12-27] MEDS: Ipratropium/Albuterol Neb 3 ML IH SCH ×2 (03:33→09:33)
[2019-12-27 07:03] VITALS: BP 101/59
[2019-12-27] MEDS ORDERED: cephALEXin 500 MG CAPSULE PO SCH (09:00)
[2019-12-27] MEDS: Celecoxib 200 MG CAPSULE PO SCH (09:23)
[2019-12-27] MEDS: lisinopriL 5 MG TABLET PO SCH (09:23)
[2019-12-27] MEDS: Aspirin Enteric Coated 81 MG Tablet PO SCH (09:23)
[2019-12-27] MEDS: Isosorbide MONOnitrate (24 HR) 30 MG TAB.ER.24H PO SCH (09:23)
== END 2019-12-27 11:51 | disposition home or self-care (01) | DRG 603 ==
LOC: 3ANU
PROVIDERS: ADMIT Surgery; ATTEND Surgery

== ENCOUNTER 2020-12-03 06:08 | Inpatient (IN) ==
[~2020-12-03 06:08] MED LIST: Vancomycin 1,000 MG, Sodium Chloride IRRigation 1,000 ML IR ONE
[2020-12-03] MEDS ORDERED: Vancomycin 1,250 MG/262.5 ML IV.SOLN IVPB ONE (06:21)
[2020-12-03] MEDS ORDERED: CeFAZolin Syr 2,000MG/20 ML 2,000 MG/20 ML SYRINGE IVPB ONE (06:21)
[2020-12-03] MEDS ORDERED: *HR* Succinylcholine 200 MG/10 ML VIAL IVP ONE (06:30)
[2020-12-03] MEDS ORDERED: Lidocaine -MPF 2% 2 ML VIAL ONE ×2 (06:30→07:55)
[2020-12-03] MEDS ORDERED: *HR* Propofol 200 MG/20 ML VIAL IVP ONE (06:30)
[2020-12-03] MEDS ORDERED: *HR* Rocuronium Bromide 50 MG/5 ML VIAL ONE ×2 (06:30→08:38)
[2020-12-03] MEDS ORDERED: Ringers Solution, Lactated 1,000 ML IVC SCH (06:30)
[2020-12-03] MEDS ORDERED: Lidocaine HCL 4 ML Topical Solution (Laryng-O-Jet Kit Sterile Pak) TP ONE (06:30)
[2020-12-03] MEDS ORDERED: Ondansetron 4 MG/2 ML VIAL ONE (06:30)
[2020-12-03] MEDS ORDERED: *HR* FentaNYL (PF) 100 MCG/2 ML VIAL ONE (06:33)
[2020-12-03] MEDS ORDERED: Heparin 1,000 UNITS/500 mL 1,500 ML ONE (06:34)
[2020-12-03] MEDS ORDERED: Vancomycin 1,000 MG VIAL ONE (06:34)
[2020-12-03] MEDS ORDERED: *HR* Heparin 5,000 UNIT/ML VIAL ONE (06:44)
[2020-12-03] MEDS ORDERED: Sugammadex Sodium 200 MG/2 ML VIAL IV ONE (06:46)
[2020-12-03] MEDS ORDERED: NiCARdipine 2.5 MG/10 ML Syringe IVPB ONE (06:51)
[2020-12-03] MEDS ORDERED: *HR* Vasopressin 20 UNIT/ML VIAL ONE (06:51)
[2020-12-03] MEDS ORDERED: Nitroglycerin 0 MG/0 ML INFUS..BTL IVC ONE (06:51)
[2020-12-03] MEDS ORDERED: Ondansetron 4 MG/2 ML VIAL IVP PRN ×2 (07:31→10:52)
[2020-12-03] MEDS ORDERED: *HR* OxyCODONE Immed Rel 5 MG TABLET PO PRN ×2 (07:31→10:52)
[2020-12-03] MEDS ORDERED: *HR* HYDROmorphone PF 0.5 MG/0.5 ML SYRINGE IVP PRN (07:31)
[2020-12-03] MEDS ORDERED: *HR* Midazolam HCl 2 MG/2 ML VIAL ONE (07:53)
[2020-12-03] MEDS ORDERED: EPHEDrine 50 MG/ML VIAL ONE (08:31)
[2020-12-03] MEDS ORDERED: *HR* HYDROMORPHONE 2 MG/ML VIAL ONE (09:04)
[2020-12-03] MEDS ORDERED: *HR* HYDROcodone/Acet 5/325 mg TABLET PO PRN (10:52)
[2020-12-03] MEDS ORDERED: 0.9 % Sodium Chloride 1,000 ML IVC SCH (10:52)
[2020-12-03] MEDS ORDERED: Acetaminophen 325 MG TABLET PO PRN (10:52)
[2020-12-03] MEDS ORDERED: Cyanocobalamin (B-12) 1,000 MCG/ML VIAL IM SCH (10:52)
[2020-12-03] MEDS ORDERED: Nitroglycerin 0.4 MG TAB.SUBL SL PRN (10:52)
[2020-12-03] MEDS ORDERED: *HR* Labetalol 20 MG/4 ML SYRINGE IVP PRN (10:52)
[2020-12-03] MEDS ORDERED: Naloxone 0.4 MG/ML INJ IVP PRN (10:52)
[2020-12-03] MEDS: *HR* Metoprolol 5 MG/5 ML VIAL IVP SCH ×3 (12:47→23:34)
[2020-12-03] MEDS: CeFAZolin 2 GM/120 ML BAG IVPB SCH ×2 (16:40→23:34)
[2020-12-03] MEDS: clonazePAM 1 MG TABLET PO SCH (20:42)
[2020-12-04] MEDS: *HR* Metoprolol 5 MG/5 ML VIAL IVP SCH (05:19)
[2020-12-04 05:50] LABS: Basophils # 0.1 K/mcL (0.0-0.2); Basophils % 0.5 %; Eosinophils # 0.1 K/mcL (0.0-0.6); Eosinophils % 0.8 %; Hematocrit 28.4 % (37.5-50.1); Hemoglobin 8.7 g/dL (12.9-16.9); Immature Granulocytes % 0.3 % (0-4); Lymphocytes # 2.4 K/mcL (0.6-4.6); Lymphocytes % 20.7 %; Mean Corpuscular HGB Conc 30.6 g/dL (31.6-35.5); Mean Corpuscular Hemoglobin 22.8 pg (28.0-33.3); Mean Corpuscular Volume 74.3 fL (83.0-100.0); Mean Platelet Volume 8.7 fL (9.4-12.4); Monocytes # 0.7 K/mcL (0.0-1.3); Monocytes % 5.7 %; Neutrophils # 8.3 K/mcL (1.6-8.9); Platelet Count 215 K/mcL (140-400); Red Blood Count 3.82 M/mcL (4.19-5.50); Red Cell Distribution Width 17.2 % (11.5-14.5)
[2020-12-04 05:51] LABS: White Blood Count 11.5 K/mcL (4.3-11.1)
[2020-12-04] MEDS ORDERED: *HR* Heparin 5,000 UNIT/ML VIAL SQ SCH (06:00)
[2020-12-04 06:08] LABS: BUN/Creatinine Ratio 10 (6-26); Blood Urea Nitrogen 6 mg/dL (8-23); Calcium 8.2 mg/dL (8.6-10.3); Carbon Dioxide 25 mEq/L (23-29); Chloride 100 mEq/L (98-107); Glucose 92 mg/dL (70-105); Osmolality,Calculated 269 (280-300); Potassium 4.1 mEq/L (3.5-5.1); Sodium 131 mEq/L (136-145); eGFR For African Americans > 60 (> 60); eGFR For Non-African Americans > 60 (> 60)
[2020-12-04 07:37] VITALS: TEMP 97.7; O2SAT 92
[2020-12-04] MEDS: clonazePAM 1 MG TABLET PO SCH (08:13)
[2020-12-04] MEDS ORDERED: Multivit/Ca/Min/Fe/FA 1 TAB TABLET PO SCH (09:00)
[2020-12-04] MEDS ORDERED: lisinopriL 5 MG TABLET PO SCH (09:00)
[2020-12-04] MEDS ORDERED: Aspirin Enteric Coated 81 MG Tablet PO SCH (09:00)
[2020-12-04] MEDS ORDERED: Gabapentin 300 MG CAPSULE PO SCH (09:00)
[2020-12-04 11:39] VITALS: BP 90/56; PULSE 67
[2020-12-06] MEDS ORDERED: Ergocalciferol (VIT D2) 50,000 UNIT (1.25MG) CAP PO SCH (09:00)
== END 2020-12-04 12:49 | disposition home or self-care (01) | DRG 272 ==
LOC: SAMDAY 06:08 → 2NNU 11:33
PROVIDERS: ADMIT Surgery; ATTEND Surgery

== ENCOUNTER 2021-03-10 14:54 | Inpatient (IN) ==
[2021-03-10 15:51] LABS: Basophils # 0.1 K/mcL (0.0-0.2); Basophils % 0.8 %; Eosinophils # 0.3 K/mcL (0.0-0.6); Eosinophils % 4.3 %; Immature Granulocytes % 0.1 % (0-4); Mean Corpuscular HGB Conc 29.6 g/dL (31.6-35.5); Mean Corpuscular Hemoglobin 21.2 pg (28.0-33.3); Mean Corpuscular Volume 71.6 fL (83.0-100.0); Monocytes # 0.6 K/mcL (0.0-1.3); Monocytes % 7.6 %; Neutrophils # 4.4 K/mcL (1.6-8.9); Platelet Count 294 K/mcL (140-400); Red Blood Count 3.77 M/mcL (4.19-5.50); Segmented Neutrophils % 60.2 %; White Blood Count 7.3 K/mcL (4.3-11.1)
[2021-03-10] MEDS ORDERED: Isovue-370 500 ML BOTTLE IVP ONE (15:52)
[2021-03-10] MEDS ORDERED: *HR* Heparin 5,000 UNIT/ML VIAL IVP PRN ×2 (15:57)
[2021-03-10] MEDS ORDERED: *HR* Heparin 5,000 UNIT/ML VIAL IVP ONE (15:57)
[2021-03-10] MEDS ORDERED: Heparin 25,000UNIT/250ML 1/2NS 25,000 UNIT/250 ML IV.SOLN IVC SCH (16:00)
[2021-03-10 16:09] LABS: Alanine Aminotransferase 9 Units/L (7-52); Albumin 4.2 g/dL (3.5-5.7); Albumin/Globulin Ratio 1.4 (1.1-2.2); Alkaline Phosphatase 121 Units/L (34-104); Aspartate Amino Transferase 14 Units/L (13-39); BUN/Creatinine Ratio 13 (6-26); Bilirubin,Total 0.5 mg/dL (0.3-1.0); Blood Urea Nitrogen 8 mg/dL (8-23); Carbon Dioxide 25 mEq/L (23-29); Chloride 96 mEq/L (98-107); Glucose 96 mg/dL (70-105); Heparin anti-factor XA UFH 0.04 IU/mL (0.30-0.70); INR 1.1; Osmolality,Calculated 266 (280-300); Potassium 3.7 mEq/L (3.5-5.1); Prothrombin Time 12.2 Seconds (9.4-12.1); Sodium 129 mEq/L (136-145); Total Protein 7.2 g/dL (6.4-8.9); eGFR For African Americans > 60 (> 60); eGFR For Non-African Americans > 60 (> 60)
[2021-03-10 16:13] LABS: Activated Partial Thrombo Time 26.5 Seconds (26.0-36.0)
[2021-03-10] MEDS ORDERED: Ipratropium/Albuterol Neb 3 ML ONE (18:59)
[2021-03-10] MEDS ORDERED: Ondansetron ODT 4 MG TAB.RAPDIS SL PRN (20:16)
[2021-03-10] MEDS ORDERED: Melatonin 3 MG TABLET PO PRN (20:16)
[2021-03-10] MEDS ORDERED: Naloxone 0.4 MG/ML INJ IVP PRN (20:16)
[2021-03-10] MEDS: 0.9 % Sodium Chloride 1,000 ML IVC SCH (22:14)
[2021-03-11 05:43] LABS: INR 1.1; Prothrombin Time 12.7 Seconds (9.4-12.1)
[2021-03-11 05:47] LABS: Hematocrit 26.8 % (37.5-50.1); Hemoglobin 7.9 g/dL (12.9-16.9); Mean Corpuscular HGB Conc 29.5 g/dL (31.6-35.5); Mean Corpuscular Hemoglobin 21.8 pg (28.0-33.3); Mean Platelet Volume 8.9 fL (9.4-12.4); Platelet Count 280 K/mcL (140-400); Red Blood Count 3.62 M/mcL (4.19-5.50); Red Cell Distribution Width 18.4 % (11.5-14.5); White Blood Count 5.9 K/mcL (4.3-11.1)
[2021-03-11 06:02] LABS: BUN/Creatinine Ratio 13 (6-26); Blood Urea Nitrogen 7 mg/dL (8-23); Calcium 8.6 mg/dL (8.6-10.3); Carbon Dioxide 21 mEq/L (23-29); Chloride 101 mEq/L (98-107); Glucose 91 mg/dL (70-105); Magnesium 1.7 mg/dL (1.6-2.6); Osmolality,Calculated 272 (280-300); Phosphorous 2.9 mg/dL (2.7-4.5); Potassium 3.9 mEq/L (3.5-5.1); Sodium 132 mEq/L (136-145); eGFR For African Americans > 60 (> 60); eGFR For Non-African Americans > 60 (> 60)
[2021-03-11] MEDS: 0.9 % Sodium Chloride 1,000 ML IVC SCH (09:04)
[2021-03-11] MEDS ORDERED: *HR* FentaNYL (PF) 100 MCG/2 ML VIAL ONE (11:12)
[2021-03-11] MEDS ORDERED: *HR* Propofol 200 MG/20 ML VIAL IVP ONE (11:13)
[2021-03-11] MEDS ORDERED: Lidocaine -MPF 2% 5 ML VIAL ONE ×2 (11:15→12:11)
[2021-03-11] MEDS ORDERED: *HR* Rocuronium Bromide 50 MG/5 ML VIAL ONE ×2 (11:15→13:34)
[2021-03-11] MEDS ORDERED: Protamine Sulfate 50 MG/5 ML VIAL IVP ONE (11:46)
[2021-03-11] MEDS ORDERED: Bupivacaine-MPF 0.25% 10 ML VIAL ONE (11:46)
[2021-03-11] MEDS ORDERED: Heparin 1,000 UNITS/500 mL 0 ML ONE (11:46)
[2021-03-11] MEDS ORDERED: Vancomycin 1,000 MG VIAL ONE ×2 (11:47→12:38)
[2021-03-11] MEDS ORDERED: Lidocaine -MPF 4% 5 ML AMPUL ONE (12:05)
[2021-03-11] MEDS ORDERED: *HR* Heparin 5,000 UNIT/ML VIAL ONE (12:05)
[2021-03-11] MEDS ORDERED: Heparin 1,000 UNITS/500 mL 500 ML ONE (12:05)
[2021-03-11] MEDS ORDERED: EPHEDrine 50 MG/ML VIAL ONE (12:07)
[2021-03-11] MEDS ORDERED: *HR* Vasopressin 20 UNIT/ML VIAL ONE (12:10)
[2021-03-11] MEDS ORDERED: Albumin Human 5% 12.5 GM/250 ML IV.SOLN ONE (12:10)
[2021-03-11] MEDS ORDERED: *HR* Etomidate 40 MG/20 ML VIAL IVP ONE (12:13)
[2021-03-11] MEDS ORDERED: *HR* HYDROMORPHONE 2 MG/ML VIAL ONE (13:25)
[2021-03-11] MEDS ORDERED: Naloxone 0.4 MG/ML INJ IVP PRN (13:41)
[2021-03-11] MEDS ORDERED: Ondansetron ODT 4 MG TAB.RAPDIS SL PRN (13:41)
[2021-03-11] MEDS ORDERED: clonazePAM 1 MG TABLET PO PRN (13:41)
[2021-03-11] MEDS ORDERED: *HR* Labetalol 20 MG/4 ML SYRINGE IVP PRN (13:41)
[2021-03-11] MEDS ORDERED: Melatonin 3 MG TABLET PO PRN (13:41)
[2021-03-11] MEDS ORDERED: Nitroglycerin 0.4 MG TAB.SUBL SL PRN (13:41)
[2021-03-11] MEDS ORDERED: 0.9 % Sodium Chloride 1,000 ML IVC SCH (13:41)
[2021-03-11] MEDS ORDERED: Sugammadex Sodium 200 MG/2 ML VIAL IV ONE (14:24)
[2021-03-11] MEDS: *HR* Metoprolol 5 MG/5 ML VIAL IVP SCH ×2 (16:42→23:54)
[2021-03-11] MEDS: CeFAZolin 2 GM/120 ML BAG IVPB SCH (19:30)
[2021-03-11] MEDS ORDERED: Vancomycin 1,250 MG/262.5 ML IV.SOLN IVPB ONE (23:30)
[2021-03-12] MEDS: CeFAZolin 2 GM/120 ML BAG IVPB SCH (03:14)
[2021-03-12] MEDS: *HR* Metoprolol 5 MG/5 ML VIAL IVP SCH (04:19)
[2021-03-12 04:46] LABS: Blood Urea Nitrogen 6 mg/dL (8-23); Calcium 8.3 mg/dL (8.6-10.3); Carbon Dioxide 21 mEq/L (23-29); Chloride 100 mEq/L (98-107); Glucose 101 mg/dL (70-105); Osmolality,Calculated 268 (280-300); Potassium 3.6 mEq/L (3.5-5.1); Sodium 130 mEq/L (136-145)
[2021-03-12 05:33] LABS: BUN/Creatinine Ratio 10 (6-26); eGFR For African Americans > 60 (> 60); eGFR For Non-African Americans > 60 (> 60)
[2021-03-12 06:00] LABS: Basophils % 0.4 %; Hematocrit 22.8 % (37.5-50.1); Immature Granulocytes % 0.5 % (0-4); Lymphocytes # 1.5 K/mcL (0.6-4.6); Lymphocytes % 17.2 %; Mean Corpuscular HGB Conc 30.7 g/dL (31.6-35.5); Mean Corpuscular Hemoglobin 21.9 pg (28.0-33.3); Mean Corpuscular Volume 71.3 fL (83.0-100.0); Mean Platelet Volume 9.4 fL (9.4-12.4); Monocytes # 0.6 K/mcL (0.0-1.3); Monocytes % 6.4 %; Neutrophils # 6.5 K/mcL (1.6-8.9); Platelet Count 247 K/mcL (140-400); Red Cell Distribution Width 17.7 % (11.5-14.5); Segmented Neutrophils % 75.5 %; White Blood Count 8.6 K/mcL (4.3-11.1)
[2021-03-12] MEDS ORDERED: Gabapentin 300 MG CAPSULE PO SCH (09:00)
[2021-03-12] MEDS ORDERED: Multivit/Ca/Min/Fe/FA 1 TAB TABLET PO SCH (09:00)
[2021-03-12] MEDS ORDERED: lisinopriL 5 MG TABLET PO SCH (09:00)
[2021-03-12] MEDS ORDERED: Aspirin Enteric Coated 81 MG Tablet PO SCH (09:00)
[2021-03-12 10:52] LABS: Hematocrit 24.8 % (37.5-50.1); Hemoglobin 7.8 g/dL (12.9-16.9); Mean Corpuscular HGB Conc 31.5 g/dL (31.6-35.5); Mean Corpuscular Hemoglobin 22.1 pg (28.0-33.3); Mean Corpuscular Volume 70.3 fL (83.0-100.0); Mean Platelet Volume 10.1 fL (9.4-12.4); Platelet Count 208 K/mcL (140-400); Red Blood Count 3.53 M/mcL (4.19-5.50); Red Cell Distribution Width 17.8 % (11.5-14.5)
[2021-03-12 11:02] VITALS: BP 102/51; PULSE 88; TEMP 97.4; O2SAT 97
[2021-03-12 11:18] LABS: White Blood Count 10.6 K/mcL (4.3-11.1)
== END 2021-03-12 14:09 | disposition home or self-care (01) | DRG 254 ==
LOC: EMEROOARM 14:54 → 2NNU 14:54 → SUATTDRO 21:38
PROVIDERS: ADMIT Student in an Organized Health Care Education/Training Program; ATTEND Internal Medicine

== ENCOUNTER 2021-04-22 09:56 | Inpatient (IN) ==
[2021-04-22] MEDS ORDERED: CeFAZolin Syr 2,000MG/20 ML 2,000 MG/20 ML SYRINGE IVPB ONE (10:17)
[2021-04-22] MEDS ORDERED: *HR* Propofol 200 MG/20 ML VIAL IVP ONE (10:17)
[2021-04-22] MEDS ORDERED: Ondansetron 4 MG/2 ML VIAL ONE (10:25)
[2021-04-22] MEDS ORDERED: *HR* Rocuronium Bromide 50 MG/5 ML VIAL ONE (10:25)
[2021-04-22] MEDS ORDERED: Lidocaine -MPF 2% 5 ML VIAL ONE (10:25)
[2021-04-22] MEDS ORDERED: *HR* FentaNYL (PF) 100 MCG/2 ML VIAL ONE (10:27)
[2021-04-22] MEDS ORDERED: Ringers Solution, Lactated 1,000 ML IVC SCH (10:30)
[2021-04-22] MEDS ORDERED: Lidocaine HCL 4 ML Topical Solution (Laryng-O-Jet Kit Sterile Pak) TP ONE (10:30)
[2021-04-22] MEDS ORDERED: Vancomycin 1,250 MG/262.5 ML IV.SOLN IVPB ONE ×2 (11:00→23:00)
[2021-04-22] MEDS ORDERED: Ropivacaine/PF 0.5% 30 ML VIAL ONE (11:13)
[2021-04-22] MEDS ORDERED: NiCARdipine 2.5 MG/10 ML Syringe IVPB ONE (11:14)
[2021-04-22] MEDS ORDERED: *HR* Vasopressin 20 UNIT/ML VIAL ONE (11:14)
[2021-04-22] MEDS ORDERED: *HR* OxyCODONE Immed Rel 5 MG TABLET PO PRN ×2 (11:17→13:45)
[2021-04-22] MEDS ORDERED: Ondansetron 4 MG/2 ML VIAL IVP PRN ×2 (11:17→13:45)
[2021-04-22] MEDS ORDERED: *HR* Midazolam HCl 2 MG/2 ML VIAL ONE (11:21)
[2021-04-22] MEDS ORDERED: Vancomycin 1,000 MG, Sodium Chloride IRRigation 1,000 ML IR ONE (11:30)
[2021-04-22] MEDS ORDERED: *HR* HYDROMORPHONE 2 MG/ML VIAL ONE (12:37)
[2021-04-22] MEDS ORDERED: Sugammadex Sodium 200 MG/2 ML VIAL IV ONE (12:39)
[2021-04-22] MEDS: *HR* HYDROmorphone PF 0.5 MG/0.5 ML SYRINGE IVP PRN ×2 (13:00→13:15)
[2021-04-22] MEDS ORDERED: *HR* Labetalol 20 MG/4 ML SYRINGE IVP PRN (13:45)
[2021-04-22] MEDS ORDERED: clonazePAM 1 MG TABLET PO PRN (13:45)
[2021-04-22] MEDS ORDERED: Acetaminophen 325 MG TABLET PO PRN ×2 (13:45)
[2021-04-22] MEDS ORDERED: 0.9 % Sodium Chloride 1,000 ML IVC SCH (13:45)
[2021-04-22] MEDS ORDERED: Nitroglycerin 0.4 MG TAB.SUBL SL PRN (13:45)
[2021-04-22] MEDS ORDERED: Naloxone 0.4 MG/ML INJ IVP PRN (13:45)
[2021-04-22] MEDS ORDERED: *HR* HYDROcodone/Acet 5/325 mg TABLET PO PRN (13:45)
[2021-04-22] MEDS: *HR* HYDROcodone/Acet 5/325 mg TABLET PO PRN ×2 (14:42→23:09)
[2021-04-22] MEDS: *HR* Metoprolol 5 MG/5 ML VIAL IVP SCH ×2 (14:42→20:15)
[2021-04-22] MEDS: Ketorolac 30 MG/ML VIAL IVP SCH ×2 (17:13→23:09)
[2021-04-22] MEDS: CeFAZolin 2 GM/120 ML BAG IVPB SCH ×2 (17:14→23:10)
[2021-04-22] MEDS: *HR* OxyCODONE Immed Rel 5 MG TABLET PO PRN (19:44)
[2021-04-23] MEDS: *HR* Metoprolol 5 MG/5 ML VIAL IVP SCH ×2 (02:51→08:43)
[2021-04-23 04:19] LABS: BUN/Creatinine Ratio 16 (6-26); Blood Urea Nitrogen 9 mg/dL (8-23); Calcium 8.3 mg/dL (8.6-10.3); Carbon Dioxide 21 mEq/L (23-29); Chloride 100 mEq/L (98-107); Glucose 123 mg/dL (70-105); Hemoglobin 7.2 g/dL (12.9-16.9); Immature Granulocytes % 0.4 % (0-4); Mean Platelet Volume 9.4 fL (9.4-12.4); Osmolality,Calculated 268 (280-300); Potassium 4.6 mEq/L (3.5-5.1); Sodium 129 mEq/L (136-145); eGFR For African Americans > 60 (> 60); eGFR For Non-African Americans > 60 (> 60)
[2021-04-23 04:21] LABS: Basophils % 0.2 %; Hematocrit 24.8 % (37.5-50.1); Lymphocytes # 1.1 K/mcL (0.6-4.6); Lymphocytes % 11.5 %; Mean Corpuscular Hemoglobin 21.9 pg (28.0-33.3); Mean Corpuscular Volume 75.4 fL (83.0-100.0); Monocytes # 0.4 K/mcL (0.0-1.3); Monocytes % 3.9 %; Neutrophils # 8.2 K/mcL (1.6-8.9); Platelet Count 250 K/mcL (140-400); Red Blood Count 3.29 M/mcL (4.19-5.50); White Blood Count 9.8 K/mcL (4.3-11.1)
[2021-04-23 05:45] LABS: Hypochromasia Present (Not Present); Microcytosis Present (Not Present); Platelet Estimate Normal (Normal)
[2021-04-23] MEDS: Ketorolac 30 MG/ML VIAL IVP SCH ×3 (05:46→18:13)
[2021-04-23] MEDS: *HR* Heparin 5,000 UNIT/ML VIAL SQ SCH ×2 (05:47→18:13)
[2021-04-23] MEDS: *HR* OxyCODONE Immed Rel 5 MG TABLET PO PRN ×3 (05:49→21:56)
[2021-04-23] MEDS ORDERED: *HR* Heparin 5,000 UNIT/ML VIAL SQ SCH (06:00)
[2021-04-23] MEDS: lisinopriL 5 MG TABLET PO SCH (08:42)
[2021-04-23] MEDS: Gabapentin 300 MG CAPSULE PO SCH (08:42)
[2021-04-23] MEDS: Aspirin Enteric Coated 81 MG Tablet PO SCH (08:42)
[2021-04-23] MEDS: Multivit/Ca/Min/Fe/FA 1 TAB TABLET PO SCH (08:43)
[2021-04-23] MEDS: *HR* HYDROcodone/Acet 5/325 mg TABLET PO PRN ×2 (10:39→20:18)
[2021-04-24] MEDS: Ketorolac 30 MG/ML VIAL IVP SCH ×5 (01:09→23:35)
[2021-04-24] MEDS: *HR* OxyCODONE Immed Rel 5 MG TABLET PO PRN ×4 (03:58→23:36)
[2021-04-24 04:11] LABS: Basophils # 0.1 K/mcL (0.0-0.2); Basophils % 0.7 %; Eosinophils # 0.3 K/mcL (0.0-0.6); Eosinophils % 2.6 %; Hematocrit 21.3 % (37.5-50.1); Hemoglobin 6.5 g/dL (12.9-16.9); Immature Granulocytes % 0.2 % (0-4); Lymphocytes # 3.9 K/mcL (0.6-4.6); Lymphocytes % 38.6 %; Mean Corpuscular HGB Conc 30.5 g/dL (31.6-35.5); Mean Corpuscular Hemoglobin 21.5 pg (28.0-33.3); Mean Corpuscular Volume 70.5 fL (83.0-100.0); Mean Platelet Volume 8.5 fL (9.4-12.4); Monocytes % 9.8 %; Neutrophils # 4.8 K/mcL (1.6-8.9); Platelet Count 314 K/mcL (140-400); Red Blood Count 3.02 M/mcL (4.19-5.50); Red Cell Distribution Width 19.5 % (11.5-14.5); Segmented Neutrophils % 48.1 %
[2021-04-24 04:32] LABS: Anisocytosis 2+ (Not Present); Microcytosis Present (Not Present); Platelet Estimate Normal (Normal)
[2021-04-24 06:02] LABS: BUN/Creatinine Ratio 12 (6-26); Blood Urea Nitrogen 7 mg/dL (8-23); Calcium 8.2 mg/dL (8.6-10.3); Carbon Dioxide 26 mEq/L (23-29); Chloride 100 mEq/L (98-107); Glucose 69 mg/dL (70-105); Osmolality,Calculated 270 (280-300); Potassium 3.6 mEq/L (3.5-5.1); Sodium 132 mEq/L (136-145); eGFR For African Americans > 60 (> 60); eGFR For Non-African Americans > 60 (> 60)
[2021-04-24] MEDS ORDERED: 0.9 % Sodium Chloride 250 ML IVC SCH (07:00)
[2021-04-24] MEDS: *HR* Heparin 5,000 UNIT/ML VIAL SQ SCH ×2 (07:34→17:26)
[2021-04-24] MEDS: Aspirin Enteric Coated 81 MG Tablet PO SCH (09:48)
[2021-04-24] MEDS: Multivit/Ca/Min/Fe/FA 1 TAB TABLET PO SCH (09:49)
[2021-04-24] MEDS: Gabapentin 300 MG CAPSULE PO SCH (09:49)
[2021-04-24] MEDS: lisinopriL 5 MG TABLET PO SCH (11:18)
[2021-04-24] MEDS: *HR* HYDROcodone/Acet 5/325 mg TABLET PO PRN (19:26)
[2021-04-25] MEDS: *HR* HYDROcodone/Acet 5/325 mg TABLET PO PRN ×2 (03:57→17:54)
[2021-04-25 04:43] LABS: Hematocrit 24.5 % (37.5-50.1); Hemoglobin 7.3 g/dL (12.9-16.9); Mean Corpuscular HGB Conc 29.8 g/dL (31.6-35.5); Mean Corpuscular Hemoglobin 21.7 pg (28.0-33.3); Mean Corpuscular Volume 72.9 fL (83.0-100.0); Mean Platelet Volume 8.8 fL (9.4-12.4); Platelet Count 295 K/mcL (140-400); Red Blood Count 3.36 M/mcL (4.19-5.50); Red Cell Distribution Width 20.4 % (11.5-14.5); White Blood Count 7.8 K/mcL (4.3-11.1)
[2021-04-25] MEDS: Ketorolac 30 MG/ML VIAL IVP SCH ×4 (06:19→23:09)
[2021-04-25] MEDS: *HR* Heparin 5,000 UNIT/ML VIAL SQ SCH ×2 (06:19→17:52)
[2021-04-25] MEDS: *HR* OxyCODONE Immed Rel 5 MG TABLET PO PRN ×3 (06:20→22:07)
[2021-04-25] MEDS: Aspirin Enteric Coated 81 MG Tablet PO SCH (07:51)
[2021-04-25] MEDS: lisinopriL 5 MG TABLET PO SCH (07:52)
[2021-04-25] MEDS: Multivit/Ca/Min/Fe/FA 1 TAB TABLET PO SCH (07:52)
[2021-04-25] MEDS: Gabapentin 300 MG CAPSULE PO SCH (07:52)
[2021-04-25] MEDS ORDERED: Morphine Sulfate 2 MG/ML SYRINGE IVP ONE (15:49)
[2021-04-26] MEDS: *HR* HYDROcodone/Acet 5/325 mg TABLET PO PRN ×2 (03:03→11:28)
[2021-04-26 04:22] LABS: Hematocrit 25.8 % (37.5-50.1); Hemoglobin 8.1 g/dL (12.9-16.9); Mean Corpuscular HGB Conc 31.4 g/dL (31.6-35.5); Mean Corpuscular Hemoglobin 22.7 pg (28.0-33.3); Mean Corpuscular Volume 72.3 fL (83.0-100.0); Mean Platelet Volume 8.9 fL (9.4-12.4); Platelet Count 280 K/mcL (140-400); Red Blood Count 3.57 M/mcL (4.19-5.50); Red Cell Distribution Width 20.9 % (11.5-14.5); White Blood Count 8.7 K/mcL (4.3-11.1)
[2021-04-26] MEDS: Ketorolac 30 MG/ML VIAL IVP SCH ×2 (06:21→11:35)
[2021-04-26] MEDS: *HR* Heparin 5,000 UNIT/ML VIAL SQ SCH (06:22)
[2021-04-26 06:42] VITALS: TEMP 97.8
[2021-04-26] MEDS: lisinopriL 5 MG TABLET PO SCH (07:47)
[2021-04-26] MEDS: Gabapentin 300 MG CAPSULE PO SCH (07:48)
[2021-04-26] MEDS: *HR* OxyCODONE Immed Rel 5 MG TABLET PO PRN ×2 (07:48→16:49)
[2021-04-26] MEDS: Multivit/Ca/Min/Fe/FA 1 TAB TABLET PO SCH (07:48)
[2021-04-26] MEDS: Aspirin Enteric Coated 81 MG Tablet PO SCH (07:48)
[2021-04-26] MEDS ORDERED: Ergocalciferol (VIT D2) 50,000 UNIT (1.25MG) CAP PO SCH (09:00)
[2021-04-26 10:58] VITALS: BP 111/72; PULSE 61; O2SAT 100
== END 2021-04-26 17:17 | disposition home health service (06) | DRG 240 ==
LOC: SAMDAY 09:56 → 4WAOSI 10:29
PROVIDERS: ADMIT Surgery; ATTEND Surgery

== ENCOUNTER 2021-05-26 12:06 | Inpatient (IN) ==
[2021-05-26] MEDS ORDERED: Cefepime HCl 2,000 MG in 0.9 % Sodium Chloride Mini Bag 100 ML IVPB ONE (14:22)
[2021-05-26] MEDS ORDERED: Ondansetron 4 MG/2 ML VIAL IVP ONE (14:27)
[2021-05-26] MEDS ORDERED: Morphine Sulfate 2 MG/ML SYRINGE IVP ONE (14:28)
[2021-05-26] MEDS ORDERED: *HR* HYDROmorphone (PF) 1 MG/ML SYRINGE IVP ONE (15:39)
[2021-05-26] MEDS ORDERED: Naloxone 0.4 MG/ML INJ IVP PRN (15:46)
[2021-05-26] MEDS ORDERED: Mag Hydrox/Al Hydrox/Simeth 30 ML UDC PO PRN (15:46)
[2021-05-26] MEDS ORDERED: Ondansetron ODT 4 MG TAB.RAPDIS SL PRN (15:46)
[2021-05-26] MEDS ORDERED: Acetaminophen 325 MG TABLET PO PRN (15:46)
[2021-05-26] MEDS ORDERED: Nitroglycerin 0.4 MG TAB.SUBL SL PRN (15:53)
[2021-05-26] MEDS ORDERED: clonazePAM 1 MG TABLET PO PRN (15:53)
[2021-05-26] MEDS ORDERED: Cyanocobalamin (B-12) 1,000 MCG/ML VIAL IM SCH (16:00)
[2021-05-26] MEDS ORDERED: Vancomycin (wt based) 1,000 MG VIAL IVPB SCH (16:00)
[2021-05-26] MEDS: Piperacillin/Tazobactam 3.375 GM in 0.9 % Sodium Chloride Mini Bag 100 ML IVPB SCH ×2 (17:28→23:58)
[2021-05-26] MEDS: 0.9 % Sodium Chloride w KCl 20 MEQ/1,000 ML MLS IVC SCH (17:28)
[2021-05-27 02:14] LABS: Hematocrit 27.1 % (37.5-50.1); Hemoglobin 8.6 g/dL (12.9-16.9); Mean Corpuscular HGB Conc 31.7 g/dL (31.6-35.5); Mean Corpuscular Hemoglobin 23.9 pg (28.0-33.3); Mean Corpuscular Volume 75.3 fL (83.0-100.0); Mean Platelet Volume 8.5 fL (9.4-12.4); Platelet Count 375 K/mcL (140-400); Red Cell Distribution Width 22.4 % (11.5-14.5)
[2021-05-27 02:16] LABS: BUN/Creatinine Ratio 20 (6-26); Blood Urea Nitrogen 13 mg/dL (8-23); C-Reactive Protein 214 mg/L (Less than 10); Calcium 8.6 mg/dL (8.6-10.3); Carbon Dioxide 20 mEq/L (23-29); Chloride 91 mEq/L (98-107); Glucose 90 mg/dL (70-105); Osmolality,Calculated 256 (280-300); Potassium 3.8 mEq/L (3.5-5.1); Sodium 123 mEq/L (136-145); eGFR For African Americans > 60 (> 60); eGFR For Non-African Americans > 60 (> 60)
[2021-05-27 02:24] LABS: White Blood Count 38.8 K/mcL (4.3-11.1)
[2021-05-27] MEDS: *HR* OxyCODONE Immed Rel 5 MG TABLET PO PRN ×4 (02:44→21:59)
[2021-05-27 03:52] LABS: Lymphocytes # 1.6 K/mcL (0.6-4.6); Monocytes # 0.8 K/mcL (0.0-1.3); Neutrophils # 36.5 K/mcL (1.6-8.9)
[2021-05-27 03:53] LABS: Anisocytosis 2+ (Not Present); Platelet Estimate Normal (Normal)
[2021-05-27] MEDS ORDERED: ISOSORBIDE DINITRATE 30 MG PO SCH (09:00)
[2021-05-27] MEDS: Piperacillin/Tazobactam 3.375 GM in 0.9 % Sodium Chloride Mini Bag 100 ML IVPB SCH ×3 (10:02→23:09)
[2021-05-27] MEDS: Gabapentin 300 MG CAPSULE PO SCH (10:03)
[2021-05-27] MEDS: Aspirin Enteric Coated 81 MG Tablet PO SCH (10:04)
[2021-05-27] MEDS: lisinopriL 5 MG TABLET PO SCH (10:04)
[2021-05-27] MEDS: 0.9 % Sodium Chloride w KCl 20 MEQ/1,000 ML MLS IVC SCH ×3 (14:24→23:07)
[2021-05-27] MEDS ORDERED: Morphine Sulfate 2 MG/ML SYRINGE IVP PRN (15:48)
[2021-05-27] MEDS ORDERED: Acetaminophen 325 MG TABLET PO PRN (15:50)
[2021-05-27] MEDS: Ringers Solution, Lactated 1,000 ML IVC SCH ×2 (21:06→21:08)
[2021-05-28 02:02] LABS: Hematocrit 26.4 % (37.5-50.1); Hemoglobin 8.4 g/dL (12.9-16.9); Mean Corpuscular HGB Conc 31.8 g/dL (31.6-35.5); Mean Corpuscular Volume 75.4 fL (83.0-100.0); Mean Platelet Volume 8.4 fL (9.4-12.4); Platelet Count 326 K/mcL (140-400); Red Cell Distribution Width 21.9 % (11.5-14.5); White Blood Count 27.2 K/mcL (4.3-11.1)
[2021-05-28] MEDS ORDERED: Vancomycin 1,250 MG/262.5 ML IV.SOLN IVPB SCH (03:00)
[2021-05-28 03:21] LABS: Alanine Aminotransferase 16 Units/L (7-52); Albumin 3.2 g/dL (3.5-5.7); Albumin/Globulin Ratio 1.3 (1.1-2.2); Alkaline Phosphatase 99 Units/L (34-104); Aspartate Amino Transferase 38 Units/L (13-39); BUN/Creatinine Ratio 21 (6-26); Bilirubin,Total 1.1 mg/dL (0.3-1.0); Blood Urea Nitrogen 9 mg/dL (8-23); C-Reactive Protein > 300 mg/L (Less than 10); Calcium 7.9 mg/dL (8.6-10.3); Carbon Dioxide 18 mEq/L (23-29); Chloride 93 mEq/L (98-107); Globulin 2.5 g/dL (2.4-3.5); Glucose 83 mg/dL (70-105); Osmolality,Calculated 250 (280-300); Potassium 3.5 mEq/L (3.5-5.1); Sodium 121 mEq/L (136-145); Total Protein 5.7 g/dL (6.4-8.9); eGFR For African Americans > 60 (> 60); eGFR For Non-African Americans > 60 (> 60)
[2021-05-28] MEDS: *HR* OxyCODONE Immed Rel 5 MG TABLET PO PRN ×3 (03:26→18:35)
[2021-05-28] MEDS: Vancomycin 1,250 MG/262.5 ML IV.SOLN IVPB SCH ×2 (03:27→16:17)
[2021-05-28] MEDS ORDERED: Apixaban 5 MG TABLET PO SCH (09:00)
[2021-05-28] MEDS: 0.9 % Sodium Chloride w KCl 20 MEQ/1,000 ML MLS IVC SCH (09:12)
[2021-05-28] MEDS: Apixaban 5 MG TABLET PO SCH ×2 (09:21→20:38)
[2021-05-28] MEDS: Piperacillin/Tazobactam 3.375 GM in 0.9 % Sodium Chloride Mini Bag 100 ML IVPB SCH ×3 (09:21→23:49)
[2021-05-28] MEDS: lisinopriL 5 MG TABLET PO SCH (09:22)
[2021-05-28] MEDS: Gabapentin 300 MG CAPSULE PO SCH (09:22)
[2021-05-28] MEDS: Multivit/Ca/Min/Fe/FA 1 TAB TABLET PO SCH (09:23)
[2021-05-28] MEDS: Aspirin Enteric Coated 81 MG Tablet PO SCH (09:23)
[2021-05-28 11:55] LABS: Sodium, Urine 33.4 mEq/L
[2021-05-29 06:10] LABS: Hematocrit 26.1 % (37.5-50.1); Hemoglobin 8.1 g/dL (12.9-16.9); Mean Corpuscular Hemoglobin 23.3 pg (28.0-33.3); Mean Platelet Volume 8.7 fL (9.4-12.4); Platelet Count 364 K/mcL (140-400); Red Blood Count 3.48 M/mcL (4.19-5.50); White Blood Count 19.2 K/mcL (4.3-11.1)
[2021-05-29 06:40] LABS: Alanine Aminotransferase 18 Units/L (7-52); Albumin 3.2 g/dL (3.5-5.7); Albumin/Globulin Ratio 1.2 (1.1-2.2); Alkaline Phosphatase 121 Units/L (34-104); Aspartate Amino Transferase 36 Units/L (13-39); BUN/Creatinine Ratio 13 (6-26); Bilirubin,Total 0.8 mg/dL (0.3-1.0); Blood Urea Nitrogen 6 mg/dL (8-23); Calcium 8.1 mg/dL (8.6-10.3); Carbon Dioxide 22 mEq/L (23-29); Chloride 93 mEq/L (98-107); Globulin 2.7 g/dL (2.4-3.5); Glucose 91 mg/dL (70-105); Osmolality,Calculated 253 (280-300); Potassium 2.7 mEq/L (3.5-5.1); Sodium 123 mEq/L (136-145); Total Protein 5.9 g/dL (6.4-8.9); eGFR For African Americans > 60 (> 60); eGFR For Non-African Americans > 60 (> 60)
[2021-05-29] MEDS: *HR* OxyCODONE Immed Rel 5 MG TABLET PO PRN (06:52)
[2021-05-29] MEDS: Piperacillin/Tazobactam 3.375 GM in 0.9 % Sodium Chloride Mini Bag 100 ML IVPB SCH (07:56)
[2021-05-29] MEDS: Gabapentin 300 MG CAPSULE PO SCH (08:09)
[2021-05-29] MEDS: lisinopriL 5 MG TABLET PO SCH (08:09)
[2021-05-29] MEDS: Multivit/Ca/Min/Fe/FA 1 TAB TABLET PO SCH (08:09)
[2021-05-29] MEDS: Aspirin Enteric Coated 81 MG Tablet PO SCH (08:09)
[2021-05-29] MEDS: Apixaban 5 MG TABLET PO SCH (08:09)
[2021-05-29] MEDS ORDERED: Vancomycin 1,250 MG/262.5 ML IV.SOLN IVPB SCH (09:00)
[2021-05-29 10:09] LABS: C-Reactive Protein > 300 mg/L (Less than 10)
[2021-05-29 10:22] VITALS: BP 129/74; PULSE 66; TEMP 98.4; O2SAT 99
[2021-05-31] MEDS ORDERED: Ergocalciferol (VIT D2) 50,000 UNIT (1.25MG) CAP PO SCH (15:53)
[2021-06-04] MEDS ORDERED: Apixaban 5 MG TABLET PO SCH (09:00)
== END 2021-05-29 12:45 | disposition home health service (06) | DRG 564 ==
LOC: 3ANU 12:06 → EMEROOARM 12:06 → SUATTDRO 16:18 → 3ANU 16:30
PROVIDERS: ADMIT Internal Medicine; ATTEND Family Medicine